=== PATIENT | male | born 1965 | race Caucasian/White ===

== ENCOUNTER 2017-11-29 17:39 | Inpatient (IN) | payer OTHER ==
[~2017-11-29] VITALS: Ht 177.8 cm; Wt 115.3 kg
[2017-11-29] MEDS ORDERED: METOPROLOL TARTRATE 1 MG/ML VIAL IV STA ×3 (18:11→19:06)
[2017-11-29] MEDS ORDERED: SODIUM CHLORIDE 0.9% 1000ML 1,000 ML IV STA (18:11)
[2017-11-29] MEDS ORDERED: BNTHP (18:16)
--- NOTE | 2017-11-29 18:17 | EMERGENCY ROOM VISIT NOTE ---
History Report prepared by Radha: Eloisa Marie Under the Supervision of: Dr. Markus Barajas M.D. 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 The patient states that he has had some sinus congestion for the past couple of days. He went to a clinic in [place] today for evaluation of his cold symptoms. At that time the patient was found to have a fast and irregular heart beat. He was advised to come to the ED for further evaluation. The patient denies feeling like his heart is pounding or racing. He denies having any cardiac symptoms at all. He denies fevers, cough, chest pain, shortness of breath, abdominal pain, pain or swelling in his legs, and any recent long travel. Patient denies any recent trauma or injury. He has been taking NyQuil to manage his cold symptoms. He denies taking any Sudafed. The patient denies any drug or alcohol use. He denies any cocaine use. He does note a family history of a-fib. 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 A total of 10 systems reviewed and were otherwise negative. Past Medical & Surgical Medical Problems: (1) Afib (2) Finger avulsion (3) IBS (irritable bowel syndrome) Family History FH: atrial fibrillation Social History Smoking Status: Never Smoker Smokeless Tobacco Use: No Alcohol Use: none Drug Use: none Marital Status: Housing Status: lives with significant other Current/Historical Medications Miscellaneous Medications Dicyclomine HCl (Dicyclomine HCl) Allergies Coded Allergies: Codeine (Unverified Allergy, Intermediate, VOMITING, 11/29/17) Tetanus Toxoid (Unverified Allergy, Intermediate, redness and swelling, ) Physical Exam Vital Signs Date Time Temp Pulse Resp B/P (MAP) Pulse Ox O2 Delivery O2 Flow Rate FiO2 11/29/17 19:30 102 18 96 11/29/17 19:26 119 19 139/102 98 Room Air 11/29/17 19:25 98 Room Air 11/29/17 19:14 135 151/115 11/29/17 19:03 124 151/115 11/29/17 18:55 133 27 179/103 98 Room Air 11/29/17 18:23 97 Room Air 11/29/17 18:22 144 163/105 11/29/17 18:11 131 11/29/17 17:51 36.8 104 20 143/102 97 Room Air Physical Exam GENERAL: Patient is well appearing and in minimal distress. EYES: No scleral icterus, unremarkable pupils. ENT: Mucous membranes moist, no nasal congestion. Retracted right TM. NECK: No masses appreciated, no meningismus, trachea is midline. RESPIRATORY: No dyspnea. Clear to auscultation and equal bilaterally. No wheeze , no rhonchi. CARDIOVASCULAR: Tachycardic rate and irregular rhythm. No murmurs, rubs, gallops appreciated. GASTROINTESTINAL: Abdomen soft, nontender, no peritonitis. Bowel sounds positive. No masses appreciated. BACK: No midline tenderness, no CVA tenderness EXTREMITIES: Normal motion all extremities, no cyanosis, no edema. NEUROLOGIC: Alert and oriented, no acute motor or sensory deficits, no focal weakness, cranial nerves grossly intact. SKIN: No rash, no jaundice, no diaphoresis. Medical Decision & Procedures ER Provider Diagnostic Interpretation: Radiology results and stated below per my review and radiologist interpretation: CHEST ONE VIEW PORTABLE CLINICAL HISTORY: New Onset Afib RVR cardiac arrhythmia COMPARISON STUDY: No previous studies for comparison. FINDINGS: Moderate cardiomegaly. Lungs are clear. Diaphragms are smooth. IMPRESSION: Moderate cardiomegaly. Otherwise negative study. The above report was generated using voice recognition software. It may contain grammatical, syntax or spelling errors. Electronically signed by: Sharif Smith M.D. 11/29/2017 6:38 PM Dictated Date/Time: 11/29/2017 6:38 PM Laboratory Results 11/29/17 16:01 Red Blood Count 5.21, Mean Corpuscular Volume 83.9, Mean Corpuscular Hemoglobin 29.4, Mean Corpuscular Hemoglobin Concent 35.0, Mean Platelet Volume 9.4, Neutrophils (%) (Auto) 67.8, Lymphocytes (%) (Auto) 20.4, Monocytes (%) (Auto) 9.1, Eosinophils (%) (Auto) 2.0, Basophils (%) (Auto) 0.4, Neutrophils # (Auto) 7.98, Lymphocytes # (Auto) 2.40, Monocytes # (Auto) 1.07, Eosinophils # (Auto) 0.23, Basophils # (Auto) 0.05 11/29/17 16:01 Test 11/29/17 16:01 11/29/17 16:10 White Blood Count 11.77 K/uL (4.8-10.8) Red Blood Count 5.21 M/uL (4.7-6.1) Hemoglobin 15.3 g/dL (14.0-18.0) Hematocrit 43.7 % (42-52) Mean Corpuscular Volume 83.9 fL (80-100) Mean Corpuscular Hemoglobin 29.4 pg (25-34) Mean Corpuscular Hemoglobin Concent 35.0 g/dl (32-36) Platelet Count 289 K/uL (130-400) Mean Platelet Volume 9.4 fL (7.4-10.4) Neutrophils (%) (Auto) 67.8 % Lymphocytes (%) (Auto) 20.4 % Monocytes (%) (Auto) 9.1 % Eosinophils (%) (Auto) 2.0 % Basophils (%) (Auto) 0.4 % Neutrophils # (Auto) 7.98 K/uL (1.4-6.5) Lymphocytes # (Auto) 2.40 K/uL (1.2-3.4) Monocytes # (Auto) 1.07 K/uL (0.11-0.59) Eosinophils # (Auto) 0.23 K/uL (0-0.5) Basophils # (Auto) 0.05 K/uL (0-0.2) RDW Standard Deviation 40.7 fL (36.4-46.3) RDW Coefficient of Variation 13.5 % (11.5-14.5) Immature Granulocyte % (Auto) 0.3 % Immature Granulocyte # (Auto) 0.04 K/uL (0.00-0.02) Anion Gap 5.0 mmol/L (3-11) Est Creatinine Clear Calc Drug Dose 101.5 ml/min Estimated GFR () 90.0 Estimated GFR (Non- 77.6 BUN/Creatinine Ratio 17.4 (10-20) Calcium Level 8.9 mg/dl (8.5-10.1) Magnesium Level 2.3 mg/dl (1.8-2.4) Troponin I < 0.015 ng/ml (0-0.045) Pro-B-Type Natriuretic Peptide 952 pg/ml (0-900) Thyroid Stimulating Hormone (TSH) 2.410 uIu/ml (0.300-4.500) Prothrombin Time 11.2 SECONDS (9.0-12.0) Prothromb Time International Ratio 1.1 (0.9-1.1) Activated Partial Thromboplast Time 27.6 SECONDS (21.0-31.0) Partial Thromboplastin Ratio 1.1 Laboratory results as reviewed by me. Medications Administered Medications (Trade) Dose Ordered Sig/Vivian Route Start Time Stop Time Status Last Admin Dose Admin Metoprolol Tartrate (Lopressor Iv) 5 mg NOW STAT IV 11/29/17 18:11 11/29/17 18:12 DC 11/29/17 18:22 5 MG Sodium Chloride 1,000 ml @ 999 mls/hr Q1H1M STAT IV 11/29/17 18:11 11/29/17 19:11 DC 11/29/17 18:11 999 MLS/HR Metoprolol Tartrate (Lopressor Iv) 5 mg NOW STAT IV 11/29/17 18:50 11/29/17 18:51 DC 11/29/17 19:03 5 MG Metoprolol Tartrate (Lopressor Iv) 5 mg NOW STAT IV 11/29/17 19:06 11/29/17 19:07 DC 11/29/17 19:14 5 MG ECG Per My Interpretation Indication: tachycardia Rate (beats per minute): 149 Rhythm: atrial fibrillation (with RVR) Findings: no acute ischemic change, other (QTC 396) Comparison ECG Date: 08/27/2002 Change: Pt is now in atrial fibrillation. ED Course 175: The patient was evaluated in room C2B. A complete history and physical exam was performed. 1810: NSS 1000 ml @ 999 mls/hr IV, Lopressor 5 mg IV 1850: Lopressor 5 mg IV 1900: I spoke with Gi Bergeron PA-C. We discussed the patient's case. The patient will be evaluated by the [facility] for further management. 1901: I reassessed the patient at this time. He is feeling better and resting comfortably. I discussed the results and treatment plan with the patient. I answered all pertaining questions that he had. He expressed understanding and verbalized agreement. 1905: Lopressor 5 mg IV 1935: The patient had a brief episode of left-sided chest pain that quickly resolved on its own. ECG does not show any ischemia. Hospitalist at bedside. Medical Decision Differential: NSR, SVT, PACs, PVCs, Cardiac Dysrhythmia, Endocrine Dysfunction, Electrolyte/Metabolic Abnormality, Pulmonary Embolism, Infectious, GI, amonst other pathologies entertained. 52 yr old male sent from clinic for evaluation of palpitations. Notes went initially for sinus congestion. On arrival he is in afib RVR. Multiple rounds IV Lopressor to slow HR as well as IV fluid bolus. No evidence infection, anemia, nor PE. No cardiac ischemia at this time. Unclear time of onset. CXR does show some cardiomegaly without congestive failure. Breathing comfortably. Single episode left chest pain which was only a few moments. Repeat EKG still afib RVR without ischemia. With persistent RVR will need to come in. Hospitalist will manage anticoagulation. Patient comfortable with plan. Medication Reconcilliation Current Medication List: was personally reviewed by me Blood Pressure Screening Patient's blood pressure: Elevated blood pressure Will be monitored by hospitalist. Consults Time Called: 1850 Consulting Physician: Gi Bergeron PA-C Returned Call: 1899 I spoke with Gi Bergeron PA-C. We discussed the patient's case. The patient will be evaluated by the [facility] for further management. Impression Primary Impression: Atrial fibrillation with RVR Critical Care I have personally spent greater than 30 minutes of critical care time in the direct management of this patient. This was a life/limb threatening event. This includes time spent evaluating patient, direct bedside care, chart review, placing orders, interpretation of diagnostic studies, discussion with consultants, patient, and family members, as well as other required patient management activities. This 30 minutes is in excess of all separately billable procedures. Scribe Attestation The scribe's documentation has been prepared under my direction and personally reviewed by me in its entirety. I confirm that the note above accurately reflects all work, treatment, procedures, and medical decision making performed by me. Departure Information Dispostion Being Evaluated By Hospitalist Referrals Gokul Will D.O. (PCP) Patient Instructions My [facility]
[2017-11-29 18:22] LABS: BASO % 0.4 %; BASO ABS # 0.05 K/uL (0-0.2); EOS ABS # 0.23 K/uL (0-0.5); HEMATOCRIT 43.7 % (42-52); HEMOGLOBIN 15.3 g/dL (14.0-18.0); IG# 0.04 K/uL (0.00-0.02); LYMPH % 20.4 %; MEAN CELL VOLUME 83.9 fL (80-100); MEAN CORPUSCULAR HEMOGLOBIN 29.4 pg (25-34); MEAN PLATELET VOLUME 9.4 fL (7.4-10.4); MONO % 9.1 %; MONO ABS # 1.07 K/uL (0.11-0.59); NEUT % 67.8 %; NEUT ABS # 7.98 K/uL (1.4-6.5); PLATELET COUNT 289 K/uL (130-400); RED CELL DISTRIBUTION WIDTH CV 13.5 % (11.5-14.5); RED CELL DISTRIBUTION WIDTH SD 40.7 fL (36.4-46.3); WHITE BLOOD COUNT 11.77 K/uL (4.8-10.8)
[2017-11-29 18:38] LABS: BLOOD UREA NITROGEN 19 mg/dl (7-18); CALCIUM 8.9 mg/dl (8.5-10.1); CARBON DIOXIDE 29 mmol/L (21-32); CREATININE 1.09 mg/dl (0.60-1.40); GLUCOSE 76 mg/dl (70-99); POTASSIUM 3.6 mmol/L (3.5-5.1); SODIUM 138 mmol/L (136-145)
--- NOTE | 2017-11-29 18:39 | DIAGNOSTIC IMAGING REPORT ---
CHEST ONE VIEW PORTABLE CLINICAL HISTORY: New Onset Afib RVR cardiac arrhythmia COMPARISON STUDY: No previous studies for comparison. FINDINGS: Moderate cardiomegaly. Lungs are clear. Diaphragms are smooth. IMPRESSION: Moderate cardiomegaly. Otherwise negative study. The above report was generated using voice recognition software. It may contain grammatical, syntax or spelling errors. Electronically signed by: Sharif Smith M.D. 11/29/2017 6:38 PM Dictated Date/Time: 11/29/2017 6:38 PM
[2017-11-29 19:17] LABS: INR 1.1 (0.9-1.1); PTT PATIENT 27.6 SECONDS (21.0-31.0)
[2017-11-29] MEDS ORDERED: POTASSIUM CHLORIDE 10 MEQ TABCR PO STA (19:44)
[2017-11-29] MEDS ORDERED: LORAZEPAM 2 MG/ML 1 ML VIAL IV PRN (20:00)
[2017-11-29] MEDS ORDERED: ACETAMINOPHEN 325 MG TAB PO PRN (20:00)
[2017-11-29] MEDS ORDERED: NITROGLYCERIN 0.4 MG SL PER TAB CHARGE SL PRN (20:00)
[2017-11-29] MEDS ORDERED: TRAMADOL HCL 50 MG TAB PO PRN (20:00)
[2017-11-29] MEDS ORDERED: PROCHLORPERAZINE INJ 5 MG in SYRINGE 4 ML IV PRN (20:00)
[2017-11-29] MEDS ORDERED: MoRPHine SULFATE 2 MG/ML CARP IV PRN (20:00)
[2017-11-29] MEDS ORDERED: AMPICILLIN/SULBACTAM SOD INJ 3,000 MG in SODIUM CHLORIDE 0.9% 100ML 100 ML IV STA (20:10)
[2017-11-29] MEDS: HEPARIN 25,000 UNIT/500ML D5W 500 ML IV SCH (20:26)
[2017-11-29 20:58] LABS: ALBUMIN 3.6 gm/dl (3.4-5.0); TOTAL PROTEIN 7.3 gm/dl (6.4-8.2)
[2017-11-29] MEDS ORDERED: METOPROLOL SUCC 25MG EXT REL TAB PO SCH (21:00)
--- NOTE | 2017-11-29 21:00 | HISTORY & PHYSICAL EXAMINATION ---
DATE OF ADMISSION: 11/29/2017 PRIMARY CARE DOCTOR: Dr. Will. CHIEF COMPLAINT: Irregular heartbeat. HISTORY OF PRESENT ILLNESS: History obtained from patient, records. Medical history significant for IBS, diarrhea predominant. Last few days, patient noted frontal headache, sinus congestion, initially productive of clear drainage later yellow, blood tinged. Sick contacts. No chest pain, no shortness of breath. No palpitations. Patient seen at [place] [facility]. His heartbeat was noted to be fast and irregular. Antibiotic sent to pharmacy by urgent care for sinusitis as per patient. Patient sent to the ER. Noted to be in rapid AFib. Given 3 doses of IV Lopressor in the ER and IV fluids. Heart rate currently 110s. MEDICAL HISTORY: As above. SURGERIES: vasectomy. HOME MEDICATIONS: Include dicyclomine. ALLERGIES: CODEINE, TETANUS TOXOID. FAMILY HISTORY: Heart disease. PERSONAL AND SOCIAL HISTORY: Nonsmoker, no chronic intake of alcoholic beverages. 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 REVIEW OF SYSTEMS: As per HPI. All 10 systems reviewed. All other ROS negative. PHYSICAL EXAMINATION: VITAL SIGNS: Blood pressure noted to be 179/103, pulse rate 103, RR 20, temperature 36.8, sats 98 on room air. GENERAL: Noted to be slightly anxious, obese. No respiratory distress. SKIN: Normal color, warm. HEENT: Stoy palpebral conjunctiva. No ptosis. Dry mucosa. NECK: Short, supple. CHEST: Decreased breath sounds. No tenderness. HEART: Irregular, tachycardic. No murmur. ABDOMEN: Some distention, nontender. EXTREMITIES: No edema. No gross deformity. No tenderness. NEUROLOGIC: Coherent. No gross focality. LABORATORY DATA: Hemoglobin was noted to be 15.3, hematocrit 43.7, white blood cell count 11.77, platelets 289. Sodium 130, potassium 3.6, chloride 104, CO2 29, BUN 19, creatinine 1, glucose was noted to be 76. TSH was noted to be 2.4. Chest x-ray showed cardiomegaly. EKG as per my interpretation. Rate 150, AFib, some T-wave flattening in the inferior leads. ASSESSMENT AND PLAN: 1. New onset atrial fibrillation Possible precipitants : Elevated BP, possible chronic hypertension with cardiomegaly on CXR complicated sinusitis symptoms Decongestant use 2. Irritable bowel syndrome, diarrhea predominant usual loose stools as per patient PCU initiate beta leda maintenance Rx for rate control IV heparin for thromboprophylaxis Augmentin for complicated sinusitis 2D echo, Cardi consult in a.m. RE new onset AFib. DVT prophylaxis, Heparin. Full code. MTDD
[2017-11-29] MEDS ORDERED: METOPROLOL SUCC 25MG EXT REL TAB PO STA (21:01)
[2017-11-29 21:08] VITALS: BP 134/100; PULSE 120; TEMP 37.3; O2SAT 94
[2017-11-29 21:30] VITALS: BP 134/100; PULSE 77; TEMP 37.3; O2SAT 94; Ht 177.8 cm; Wt 115.3 kg
[2017-11-29] MEDS ORDERED: NSS + 20MEQ KCL 1000ML 1,000 ML IV ONE (21:30)
[2017-11-29 23:48] VITALS: BP 122/87; PULSE 58; TEMP 37; O2SAT 95
[2017-11-30] VITALS (7 sets, daily range): BP systolic 122–124; BP diastolic 67–90; PULSE 88–120; TEMP 36.7–37.1; O2SAT 93–98
[2017-11-30] MEDS: NSS + 20MEQ KCL 1000ML 1,000 ML IV SCH ×2 (01:39→22:27)
[2017-11-30 02:32] LABS: PTT PATIENT 43.9 SECONDS (21.0-31.0)
[2017-11-30] MEDS ORDERED: HEPARIN IV BOLUS 4,000 UNIT in SYRINGE 0 ML IV ONE (03:30)
[2017-11-30] MEDS: HEPARIN 25,000 UNIT/500ML D5W 500 ML IV SCH ×2 (03:42→11:25)
[2017-11-30] MEDS ORDERED: METOPROLOL SUCC 25MG EXT REL TAB PO ONE (05:04)
[2017-11-30 05:48] LABS: BASO % 0.3 %; BASO ABS # 0.03 K/uL (0-0.2); EOS % 1.3 %; EOS ABS # 0.13 K/uL (0-0.5); HEMATOCRIT 38.5 % (42-52); HEMOGLOBIN 13.6 g/dL (14.0-18.0); IG# 0.02 K/uL (0.00-0.02); LYMPH % 23.9 %; MEAN CELL VOLUME 84.2 fL (80-100); MEAN CORPUSCULAR HEMOGLOBIN 29.8 pg (25-34); MEAN CORPUSCULAR HGB CONC 35.3 g/dl (32-36); MEAN PLATELET VOLUME 9.4 fL (7.4-10.4); MONO % 8.7 %; MONO ABS # 0.84 K/uL (0.11-0.59); NEUT % 65.6 %; NEUT ABS # 6.31 K/uL (1.4-6.5); PLATELET COUNT 239 K/uL (130-400); RED CELL DISTRIBUTION WIDTH CV 13.8 % (11.5-14.5); RED CELL DISTRIBUTION WIDTH SD 42.5 fL (36.4-46.3); WHITE BLOOD COUNT 9.63 K/uL (4.8-10.8)
[2017-11-30 06:26] LABS: CALCIUM 8.3 mg/dl (8.5-10.1); CREATININE 0.84 mg/dl (0.60-1.40); POTASSIUM 3.8 mmol/L (3.5-5.1)
[2017-11-30] MEDS: AMOXICILLIN/CLAVULANATE TAB 875 MG TAB PO SCH ×2 (07:58→17:05)
[2017-11-30] MEDS ORDERED: PERFLUTREN LIPID MICROSPHERE (DEFINITY) IV ONE (09:53)
--- NOTE | 2017-11-30 10:52 | ECHOCARDIOGRAM REPORT ---
*NOTICE TO RECEIVING [employer] This information is strictly Confidential and protected under [place] law. [place] law prohibits you from making any further disclosure of this information unless further disclosure is expressly permitted by the written consent of the person to whom it pertains or is authorized by law. A general authorization for the release of medical or other information is not sufficient for this purpose. Hospital accepts no responsibility if the information is made available to any other person, INCLUDING THE PATIENT. Interpretation Summary * Name: EVONNE VIDAL Study Date: 11/30/2017 08:10 AM BP: 123/88 mmHg * Patient Location: [facility]\S\N276\S\2 HR: 96 * : 1965 (M/d/yyyy) Gender: Male Height: 70 in * Age: 52 yrs Ethnicity: CA Weight: 257 lb * Ordering Physician: Kenji Pierce * Performed By: Melissa Webber RDCS * * Reason For Study: Atrial Fibrillation * BSA: 2.3 m2 * -- Conclusions -- * The left ventricle is normal in size. * There is normal left ventricular wall thickness. * Left ventricular systolic function is normal. * The left ventricular wall motion is normal. * Ejection Fraction = 55-60%. * The left atrium is moderately dilated. * There is moderate mitral regurgitation. * There is mild tricuspid regurgitation. Procedure Details * A complete two-dimensional transthoracic echocardiogram was performed (2D, M-mode, Doppler and color flow Doppler). * The study was technically difficult. * The study was technically difficult, but visualization was adequate with the administration of Definity ultrasound contrast. * A contrast injection of Definity was performed to improve assessment of LV function. * Contrast was injected into an intravenous site in the right arm. * One vial of Definity ultrasound contrast was diluted in normal saline to a total volume of 10 ml. A total of '1' ml of solution was administered during imaging. * Lot # [id number] of Definity utilized for procedure. * Expiration date 1APR19. * The attending nurse who injected the contrast agent was Thais Gardner RN. Left Ventricle * The left ventricle is normal in size. * There is normal left ventricular wall thickness. * Ejection Fraction = 55-60%. * Left ventricular systolic function is normal. * The left ventricular wall motion is normal. Right Ventricle * The right ventricle is normal in size and function. Atria * The left atrium is moderately dilated. * Right atrial size is normal. * No ASD detected; PFO is not assessed. Mitral Valve * The mitral valve is grossly normal. * There is no mitral valve stenosis. * There is moderate mitral regurgitation. Tricuspid Valve * The tricuspid valve anatomy is normal. * There is no tricuspid stenosis. * There is mild tricuspid regurgitation. Aortic Valve * The aortic valve is trileaflet. * No hemodynamically significant valvular aortic stenosis. * No aortic regurgitation is present. Pulmonic Valve * The pulmonic valve is not well visualized. Great Vessels * The aortic root is normal size. Pericardium/Pleural * There is no pericardial effusion. Great Vessels * Normal inferior vena cava diameter and respiratory variation suggests normal central venous pressure. MMode 2D Measurements and Calculations IVSd 1.3 cm IVSs 1.2 cm LVIDd 4.8 cm LVIDs 3.2 cm LVPWd 1.1 cm LVPWs 1.0 cm IVS/LVPW 1.2 FS 34.3 % EDV(Teich) 110.1 ml ESV(Teich) 40.4 ml EF(Teich) 63.3 % EDV(cubed) 114.0 ml ESV(cubed) 32.3 ml EF(cubed) 71.7 % % IVS thick -11.30 % % LVPW thick -10.05 % LV mass(C)d 225.9 grams LV mass(C)dI 97.3 grams/m\S\2 LV mass(C)s 101.0 grams LV mass(C)sI 43.5 grams/m\S\2 SV(Teich) 69.6 ml SI(Teich) 30.0 ml/m\S\2 SV(cubed) 81.7 ml SI(cubed) 35.2 ml/m\S\2 Ao root diam 3.0 cm Ao root area 6.9 cm\S\2 ACS 1.8 cm LA dimension 5.2 cm LA/Ao 1.8 LVAd ap4 37.0 cm\S\2 LVLd ap4 9.2 cm EDV(MOD-sp4) 121.4 ml EDV(sp4-el) 126.0 ml LVAs ap4 20.6 cm\S\2 LVLs ap4 8.2 cm ESV(MOD-sp4) 43.8 ml ESV(sp4-el) 43.8 ml EF(MOD-sp4) 64.0 % EF(sp4-el) 65.2 % LVAd ap2 37.0 cm\S\2 LVLd ap2 9.2 cm EDV(MOD-sp2) 123.2 ml EDV(sp2-el) 126.0 ml LVAs ap2 24.0 cm\S\2 LVLs ap2 8.9 cm ESV(MOD-sp2) 54.3 ml ESV(sp2-el) 54.7 ml EF(MOD-sp2) 55.9 % EF(sp2-el) 56.6 % LVLd %diff -0.13 % EDV(MOD-bp) 122.0 ml LVLs %diff 8.2 % ESV(MOD-bp) 50.5 ml EF(MOD-bp) 58.6 % SV(MOD-sp4) 77.6 ml SI(MOD-sp4) 33.4 ml/m\S\2 SV(MOD-sp2) 68.9 ml SI(MOD-sp2) 29.7 ml/m\S\2 SV(MOD-bp) 71.5 ml SI(MOD-bp) 30.8 ml/m\S\2 SV(sp4-el) 82.2 ml SI(sp4-el) 35.4 ml/m\S\2 SV(sp2-el) 71.3 ml SI(sp2-el) 30.7 ml/m\S\2 Doppler Measurements and Calculations MV E max sunshine 133.8 cm/sec MV dec time 0.22 sec Ao V2 max 118.1 cm/sec Ao max PG 5.6 mmHg Ao max PG (full) 2.7 mmHg LV V1 max PG 2.9 mmHg LV V1 max 85.2 cm/sec MR max sunshine 469.5 cm/sec MR max PG 88.4 mmHg MR mean sunshine 352.8 cm/sec MR mean PG 56.4 mmHg MR VTI 137.7 cm MR PISA 2.5 cm\S\2 MR PISA radius 0.63 cm PA V2 max 93.2 cm/sec PA max PG 3.5 mmHg TR max sunshine 269.8 cm/sec
--- NOTE | 2017-11-30 11:19 | Cardiology Consultation ---
Cardiology Consultation Date of Consultation: Nov 30, 2017 Requesting Physician: Dr. Pierce Attending Campus Recruiting Intern: Dr. Skinner (Laurel James PA-C) History of Present Illness Patient is a 52 year old male who is overall fairly healthy gentleman, who only takes Nexium as an outpatient for GERD and no prior significant past medical history presented to urgent care facility yesterday for treatment of acute sinusitis. Upon evaluation, he was found to be tachycardic and EKG demonstrated new onset atrial fibrillation with RVR. He was subsequently sent to [place] ER for evaluation. Upon arrival, repeat EKG demonstrated similar with afib RVR. He was started on IV heparin and IV Lopressor. He was asymptomatic. No complaints of palpitations, dizziness, SOB or CP. He notes sinus congestion/pressure x 8-9 days. he has been taking OTC decongestants regularly. No fever or chills. notes intermittent cough, without sputum production. Cardiac enzymes unremarkable. He was transitioned to oral metoprolol succinate 25 mg BID. At time of consult, patient sitting in bed feeling well. HR remains elevated, ranging 110-130. He reports ongoing sinus congestion. no improvement since admission with antibiotic therapy. No orthopnea, PND or edema. No chest pain. No SOB. Ongoing cough, unchanged. No fever or chills. He denies personal history fo cardiovascular disease, [place], CHF, valvular heart disease or murmur. He reports being told he had an "enlarged heart" about 10 years ago by an xray. He reports "MRI" was completed which was normal. No prior stress test. No personal history of CVA, DM. BP borderline on admission. Not on antihypertensive at home. No history of GI bleed or need of transfusion. No history of alcohol or tobacco abuse. He reports father with CAD, prior stents age 60's and history fo afib. (Laurel James PA-C) Past Medical/Surgical History Problem List: Medical Problems: (1) GERD 2. IBS Surgical History: None (Laurel James PA-C) Family History FH: atrial fibrillation Father with CAD (age 60's) and afib (Laurel James PA-C) FH: atrial fibrillation (Gautam Skinner M.D.) Social History Smoking Status: Never Smoker Smokeless Tobacco Use: No Drug Use: none Marital Status: (Laurel James PA-C) Review Of Systems General: The patient denies weight change, night sweats, fever, chills. Head: The patient denies headache and prior head trauma. Cardiovascular: The patient denies chest pain or chest discomfort, dyspnea on exertion, palpitations, PND, orthopnea, edema, spontaneous shortness of breath, syncope and near syncope. Pulmonary: The patient denies cough, wheeze, pleurisy, hemoptysis, sputum, and excessive snoring. Gastrointestinal: The patient denies nausea, vomiting, diarrhea, constipation, bloating, hematemesis, hematochezia, and abdominal pain. Skin: The patient denies diaphoresis and rash. Musculoskeletal: The patient denies joint pain, joint swelling, myalgia, back pain, neck pain and prior injuries. Neurological: The patient denies prior stroke and seizures (Laurel James PA-C) Allergies Coded Allergies: Codeine (Unverified Allergy, Intermediate, VOMITING, 11/29/17) Tetanus Toxoid (Unverified Allergy, Intermediate, redness and swelling, ) Medications Reported Home Medications Medications Dose Route/Sig Max Daily Dose Days Date Category Dicyclomine HCl 1 Ea Cap 11/29/17 Reported (Laurel James PA-C) Physical Exam Vital Signs (Last 8hrs): Last 8 Hrs Date Time Temp Pulse Resp B/P (MAP) Pulse Ox O2 Delivery O2 Flow Rate FiO2 11/30/17 07:19 36.9 97 16 123/87 (99) 93 Room Air 11/30/17 04:01 37.1 96 20 123/88 (100) 95 Room Air 11/30/17 04:00 Room Air General Appearance: Alert and Oriented x3. NAD. Head: Normocephalic Atraumatic. Eyes: PERRLA, EOMI, conjunctiva and sclera clear Neck: Supple. No carotid bruits noted. No JVD. No HJD. Respiratory: Breath sounds clear to auscultation bilaterally. No w/r/r. Cardiovascular: Tachycardic, irregular. S1 and S2 noted. No murmurs, rubs, gallops. PMI non displace. Abdomen: Normal bowel sounds, soft nontender. no abdominal bruits. Extremities: No edema, no clubbing or cyanosis. distal pulses 2/4 bilaterally. Neuro: No focal deficits. Psychiatric: Normal affect. (Laurel James PA-C) Data Last 24 Hours Test 11/29/17 16:01 11/29/17 16:10 11/29/17 20:14 11/30/17 02:15 White Blood Count 11.77 K/uL Red Blood Count 5.21 M/uL Hemoglobin 15.3 g/dL Hematocrit 43.7 % Mean Corpuscular Volume 83.9 fL Mean Corpuscular Hemoglobin 29.4 pg Mean Corpuscular Hemoglobin Concent 35.0 g/dl Platelet Count 289 K/uL Mean Platelet Volume 9.4 fL Neutrophils (%) (Auto) 67.8 % Lymphocytes (%) (Auto) 20.4 % Monocytes (%) (Auto) 9.1 % Eosinophils (%) (Auto) 2.0 % Basophils (%) (Auto) 0.4 % Neutrophils # (Auto) 7.98 K/uL Lymphocytes # (Auto) 2.40 K/uL Monocytes # (Auto) 1.07 K/uL Eosinophils # (Auto) 0.23 K/uL Basophils # (Auto) 0.05 K/uL RDW Standard Deviation 40.7 fL RDW Coefficient of Variation 13.5 % Immature Granulocyte % (Auto) 0.3 % Immature Granulocyte # (Auto) 0.04 K/uL Sodium Level 138 mmol/L Potassium Level 3.6 mmol/L Chloride Level 104 mmol/L Carbon Dioxide Level 29 mmol/L Anion Gap 5.0 mmol/L Blood Urea Nitrogen 19 mg/dl Creatinine 1.09 mg/dl Est Creatinine Clear Calc Drug Dose 101.5 ml/min Estimated GFR () 90.0 Estimated GFR (Non- 77.6 BUN/Creatinine Ratio 17.4 Random Glucose 76 mg/dl Calcium Level 8.9 mg/dl Magnesium Level 2.3 mg/dl Troponin I < 0.015 ng/ml Pro-B-Type Natriuretic Peptide 952 pg/ml Thyroid Stimulating Hormone (TSH) 2.410 uIu/ml Prothrombin Time 11.2 SECONDS Prothromb Time International Ratio 1.1 Activated Partial Thromboplast Time 27.6 SECONDS 43.9 SECONDS Partial Thromboplastin Ratio 1.1 1.7 Total Bilirubin 0.7 mg/dl Direct Bilirubin 0.2 mg/dl Aspartate Amino Transf (AST/SGOT) 16 U/L Alanine Aminotransferase (ALT/SGPT) 15 U/L Alkaline Phosphatase 66 U/L Total Protein 7.3 gm/dl Albumin 3.6 gm/dl Procalcitonin 0.05 ng/ml Test 11/30/17 05:19 11/30/17 09:45 White Blood Count 9.63 K/uL Red Blood Count 4.57 M/uL Hemoglobin 13.6 g/dL Hematocrit 38.5 % Mean Corpuscular Volume 84.2 fL Mean Corpuscular Hemoglobin 29.8 pg Mean Corpuscular Hemoglobin Concent 35.3 g/dl Platelet Count 239 K/uL Mean Platelet Volume 9.4 fL Neutrophils (%) (Auto) 65.6 % Lymphocytes (%) (Auto) 23.9 % Monocytes (%) (Auto) 8.7 % Eosinophils (%) (Auto) 1.3 % Basophils (%) (Auto) 0.3 % Neutrophils # (Auto) 6.31 K/uL Lymphocytes # (Auto) 2.30 K/uL Monocytes # (Auto) 0.84 K/uL Eosinophils # (Auto) 0.13 K/uL Basophils # (Auto) 0.03 K/uL RDW Standard Deviation 42.5 fL RDW Coefficient of Variation 13.8 % Immature Granulocyte % (Auto) 0.2 % Immature Granulocyte # (Auto) 0.02 K/uL Sodium Level 139 mmol/L Potassium Level 3.8 mmol/L Chloride Level 109 mmol/L Carbon Dioxide Level 22 mmol/L Anion Gap 8.0 mmol/L Blood Urea Nitrogen 14 mg/dl Creatinine 0.84 mg/dl Est Creatinine Clear Calc Drug Dose 131.5 ml/min Estimated GFR () 116.7 Estimated GFR (Non- 100.7 BUN/Creatinine Ratio 16.5 Random Glucose 102 mg/dl Calcium Level 8.3 mg/dl Activated Partial Thromboplast Time 62.0 SECONDS Partial Thromboplastin Ratio 2.4 Imaging: Chest xray on admission: Moderate cardiomegaly, no active disease EKG on admission - Afib with RVR at 149 bpm, non specific ST/T wave abnormality. Compared with prior EKG in 2001 - afib has replaced NSR. Repeat EKG yesterday evening: Afib wiht RVR at [address]/T wave abnormality. Unchanged, rates slightly improved Repeat EKG this AM: Atrial fibrillation at 100 bpm Unchanged from previous, other than HR improving. Telemetry reviewed: Afib, with occ PVC. Rates tachycardic, ranging predominantly 110-130s. (Laurel James PA-C) Assessment & Plan ASSESSMENT: 52 year old male 1. Newly diagnosed atrial fibrillation wiht RVR, duration unknown 2. Acute sinusitis, with recent OTC decongestant use 3. Hypertension - borderline PLAN: Echo pending Duration of atrial fibrillation is not certain as patient is asymptomatic. Recommend anticoagulation therapy. Likely DOAC candidate. Recommend rate control with metoprolol succinate. Titrate as tolerated. After 4 weeks of appropriate anticoagulation therapy, if patient remains in atrial fibrillation, consider DCCV. Continue antibiotic for acute sinusitis per hospitalist. Case discussed with Dr. Skinner. Will follow. (Laurel James PA-C) Patient seen and personally examined. 52-year-old presented initially for evaluation of acute sinusitis is found to be in atrial fibrillation with elevated ventricular response rate timing, duration uncertain. Patient unaware of tachycardia palpitations or arrhythmias. Atrial fibrillation was discussed in detail with the patient, plan assessment as noted above We will give additional dose of Toprol now and supplement potassium further Gautam Skinner MD (Gautam Skinner M.D.)
[2017-11-30] MEDS ORDERED: METOPROLOL TARTRATE 25 MG TAB PO ONE (12:45)
[2017-11-30] MEDS ORDERED: METOPROLOL SUCC 50MG EXT REL TAB PO ONE (14:00)
[2017-11-30] MEDS ORDERED: POTASSIUM CHLORIDE 10 MEQ TABCR PO ONE (14:00)
--- NOTE | 2017-11-30 14:19 | Progress Note ---
Subjective Date of Service: Nov 30, 2017. Subjective Pt evaluation today including: conversation w/ patient, physical exam, lab review, review of studies, conversation w/ residential solar consultant, review of inpatient medication list Saw/examined the patient in room 276 He is doing well, denies any chest pain/shortness of breath/palpitations Has sinus congestion, but no other symptoms at this time Problem List Medical Problems: (1) Atrial fibrillation with RVR Status: Acute Review of Systems Constitutional: No fever, No chills ENT: + nasal symptoms Respiratory: No cough, No sputum, No shortness of breath Cardiac: No chest pain, No orthopnea, No PND, No edema, No palpitations Heme: No abnormal bleeding/bruising Medications Current Inpatient Medications Medications (Trade) Dose Ordered Sig/Vivian Route Start Time Stop Time Status Last Admin Dose Admin Acetaminophen (Tylenol Tab) 650 mg Q4H PRN PO 11/29/17 20:00 12/29/17 19:59 Nitroglycerin (Nitrostat Tab) 0.4 mg UD PRN SL 11/29/17 20:00 12/29/17 19:59 Tramadol HCl (Ultram Tab) 25 mg Q6H PRN PO 11/29/17 20:00 12/29/17 19:59 Prochlorperazine Edisylate 5 mg/ Syringe 5 ml @ 5 mls/min Q6H PRN IV 11/29/17 20:00 12/29/17 19:59 Amoxicillin/ Clavulanate Potassium (Augmentin Tab) 875 mg BIDM PO 11/30/17 08:00 12/10/17 07:59 11/30/17 07:58 875 MG Lorazepam (Ativan Inj) 0.5 mg Q4H PRN IV 11/29/17 20:00 12/29/17 19:59 Morphine Sulfate (MoRPHine SULFATE INJ) 4 mg Q3H PRN IV 11/29/17 20:00 12/13/17 19:59 Heparin Sodium/ Dextrose 500 ml @ 37 mls/hr [id number] IV 11/29/17 20:15 12/29/17 20:14 11/30/17 11:25 37 MLS/HR Potassium Chloride/Sodium Chloride 1,000 ml @ 50 mls/hr Q20H IV 11/30/17 01:15 4/27/18 01:14 11/30/17 01:39 50 MLS/HR Metoprolol Succinate (Toprol Xl Tab) 25 mg BID PO 11/30/17 21:00 12/29/17 20:59 Objective Vital Signs Date Time Temp Pulse Resp B/P (MAP) Pulse Ox O2 Delivery O2 Flow Rate FiO2 11/30/17 13:24 120 123/67 (85) 98 Room Air 11/30/17 12:00 93 Room Air 11/30/17 08:00 93 Room Air 11/30/17 07:19 36.9 97 16 123/87 (99) 93 Room Air 11/30/17 04:01 37.1 96 20 123/88 (100) 95 Room Air 11/30/17 04:00 Room Air 11/30/17 00:00 Room Air 11/29/17 23:48 37.0 58 18 122/87 (99) 95 Room Air 11/29/17 21:30 37.3 77 20 134/100 94 Room Air 11/29/17 21:08 37.3 120 20 134/100 (111) 94 Room Air 11/29/17 20:36 119 19 127/88 97 11/29/17 20:02 132 24 126/92 97 11/29/17 20:00 113 19 96 11/29/17 19:30 102 18 96 11/29/17 19:26 119 19 139/102 98 Room Air 11/29/17 19:25 98 Room Air 11/29/17 19:14 135 151/115 11/29/17 19:03 124 151/115 11/29/17 18:55 133 27 179/103 98 Room Air 11/29/17 18:23 97 Room Air 11/29/17 18:22 144 163/105 11/29/17 18:11 131 11/29/17 17:51 36.8 104 20 143/102 97 Room Air Physical Exam General Appearance: no apparent distress Respiratory/Chest: chest non-tender, lungs clear, normal breath sounds, no respiratory distress, no accessory muscle use Cardiovascular: no edema, + tachycardia, + irregularly irregular Extremities: normal range of motion, non-tender, normal inspection, no pedal edema, no calf tenderness Neurologic/Psychiatric: no motor/sensory deficits, alert, normal mood/affect Laboratory Results Last 24 Hours Test 11/29/17 16:01 11/29/17 16:10 11/29/17 20:14 11/30/17 02:15 White Blood Count 11.77 K/uL Red Blood Count 5.21 M/uL Hemoglobin 15.3 g/dL Hematocrit 43.7 % Mean Corpuscular Volume 83.9 fL Mean Corpuscular Hemoglobin 29.4 pg Mean Corpuscular Hemoglobin Concent 35.0 g/dl Platelet Count 289 K/uL Mean Platelet Volume 9.4 fL Neutrophils (%) (Auto) 67.8 % Lymphocytes (%) (Auto) 20.4 % Monocytes (%) (Auto) 9.1 % Eosinophils (%) (Auto) 2.0 % Basophils (%) (Auto) 0.4 % Neutrophils # (Auto) 7.98 K/uL Lymphocytes # (Auto) 2.40 K/uL Monocytes # (Auto) 1.07 K/uL Eosinophils # (Auto) 0.23 K/uL Basophils # (Auto) 0.05 K/uL RDW Standard Deviation 40.7 fL RDW Coefficient of Variation 13.5 % Immature Granulocyte % (Auto) 0.3 % Immature Granulocyte # (Auto) 0.04 K/uL Sodium Level 138 mmol/L Potassium Level 3.6 mmol/L Chloride Level 104 mmol/L Carbon Dioxide Level 29 mmol/L Anion Gap 5.0 mmol/L Blood Urea Nitrogen 19 mg/dl Creatinine 1.09 mg/dl Est Creatinine Clear Calc Drug Dose 101.5 ml/min Estimated GFR () 90.0 Estimated GFR (Non- 77.6 BUN/Creatinine Ratio 17.4 Random Glucose 76 mg/dl Calcium Level 8.9 mg/dl Magnesium Level 2.3 mg/dl Troponin I < 0.015 ng/ml Pro-B-Type Natriuretic Peptide 952 pg/ml Thyroid Stimulating Hormone (TSH) 2.410 uIu/ml Prothrombin Time 11.2 SECONDS Prothromb Time International Ratio 1.1 Activated Partial Thromboplast Time 27.6 SECONDS 43.9 SECONDS Partial Thromboplastin Ratio 1.1 1.7 Total Bilirubin 0.7 mg/dl Direct Bilirubin 0.2 mg/dl Aspartate Amino Transf (AST/SGOT) 16 U/L Alanine Aminotransferase (ALT/SGPT) 15 U/L Alkaline Phosphatase 66 U/L Total Protein 7.3 gm/dl Albumin 3.6 gm/dl Procalcitonin 0.05 ng/ml Test 11/30/17 05:19 11/30/17 09:45 White Blood Count 9.63 K/uL Red Blood Count 4.57 M/uL Hemoglobin 13.6 g/dL Hematocrit 38.5 % Mean Corpuscular Volume 84.2 fL Mean Corpuscular Hemoglobin 29.8 pg Mean Corpuscular Hemoglobin Concent 35.3 g/dl Platelet Count 239 K/uL Mean Platelet Volume 9.4 fL Neutrophils (%) (Auto) 65.6 % Lymphocytes (%) (Auto) 23.9 % Monocytes (%) (Auto) 8.7 % Eosinophils (%) (Auto) 1.3 % Basophils (%) (Auto) 0.3 % Neutrophils # (Auto) 6.31 K/uL Lymphocytes # (Auto) 2.30 K/uL Monocytes # (Auto) 0.84 K/uL Eosinophils # (Auto) 0.13 K/uL Basophils # (Auto) 0.03 K/uL RDW Standard Deviation 42.5 fL RDW Coefficient of Variation 13.8 % Immature Granulocyte % (Auto) 0.2 % Immature Granulocyte # (Auto) 0.02 K/uL Sodium Level 139 mmol/L Potassium Level 3.8 mmol/L Chloride Level 109 mmol/L Carbon Dioxide Level 22 mmol/L Anion Gap 8.0 mmol/L Blood Urea Nitrogen 14 mg/dl Creatinine 0.84 mg/dl Est Creatinine Clear Calc Drug Dose 131.5 ml/min Estimated GFR () 116.7 Estimated GFR (Non- 100.7 BUN/Creatinine Ratio 16.5 Random Glucose 102 mg/dl Calcium Level 8.3 mg/dl Activated Partial Thromboplast Time 62.0 SECONDS Partial Thromboplastin Ratio 2.4 Assessment and Plan This is a 52 year old male with recent sinus congestion and no other medical history - presents with atrial fibrillation with rvr A. Fib with RVR - currently on IV heparin for anticoagulation - would be a good candidate for a direct oral anticoagulation; Xarelto - will consult CM to discuss cost - appreciate cardiology input; rate control with b-blockade; adjusting dose of Toprol Acute Sinusitis - had been using decongestants, OTC medications - will try Augmentin, will likely need 10 day supply FULL CODE
[2017-11-30] MEDS ORDERED: METOPROLOL SUCC 25MG EXT REL TAB PO SCH (21:00)
[2017-11-30] MEDS: METOPROLOL SUCC 25MG EXT REL TAB PO SCH (22:27)
[2017-12-01] MEDS: HEPARIN 25,000 UNIT/500ML D5W 500 ML IV SCH (00:48)
[2017-12-01 04:09] VITALS: BP 121/81; PULSE 100; TEMP 36.9; O2SAT 94
[2017-12-01 07:22] VITALS: BP 129/88; PULSE 85; TEMP 36.6; O2SAT 95
[2017-12-01 07:22] LABS: PTT PATIENT 54.1 SECONDS (21.0-31.0)
[2017-12-01] MEDS: METOPROLOL SUCC 25MG EXT REL TAB PO SCH (07:29)
[2017-12-01] MEDS: AMOXICILLIN/CLAVULANATE TAB 875 MG TAB PO SCH (07:29)
[2017-12-01 08:00] VITALS: O2SAT 95
[2017-12-01] MEDS ORDERED: APIXABAN 2.5 MG TAB PO ONE (09:29)
[2017-12-01] MEDS ORDERED: METOPROLOL SUCC 25MG EXT REL TAB PO STA (10:21)
[2017-12-01] MEDS ORDERED: POTASSIUM CHLORIDE 10 MEQ TABCR PO STA (10:24)
--- NOTE | 2017-12-01 11:29 | Cardiology Follow-Up ---
Subjective General Date of Service: Dec 01, 2017. Chief Complaint: afib RVR Pt evaluation today including: conversation w/ patient, conversation w/ family , physical exam, chart review, lab review, review of studies, review of inpatient medication list History of Present Illness Patient feeling well. Sinus pressure and congestion improving. Unaware of palpitations or tachypalpitations. No dizziness. No chest pain or SOB. Allergies Coded Allergies: Codeine (Unverified Allergy, Intermediate, VOMITING, 11/29/17) Tetanus Toxoid (Unverified Allergy, Intermediate, redness and swelling, ) Social History Smoking Status: Never Smoker Hx Tobacco Use In Past Year?: No Hx Alcohol Use - Type And Amou: No Hx Substance Use - Type And Am: No Problem List Medical Problems: (1) Atrial fibrillation with RVR Status: Acute Review of Systems Respiratory: No cough, No wheezing, No shortness of breath, No dyspnea at rest , No hemoptysis Cardiac: No chest pain, No orthopnea, No PND, No edema, No palpitations Physical Exam Vital Signs Last Vital Signs Documentation Date Time Temp Pulse Resp B/P (MAP) Pulse Ox O2 Delivery O2 Flow Rate FiO2 12/01/17 08:00 95 Room Air 12/01/17 07:22 36.6 85 16 129/88 (102) Physical Exam Constitutional: General Apperance: heathly-appearing Level of Distress: NAD Psychiatric: Mental Status: active & alert Orientation: to time, to place, to person Head: normocephalic Neck: supple Lungs: Respiratory effort: no dyspnea Auscultation: no wheezing, no rales/crackles, no rhonchi Cardiovascular: Heart Auscultation: no murmurs, irregular rate rhythm Abdomen: Bowel Sounds: normal Inspection & Palpation: soft, non-distended Extremities: no edema Assessment and Plan Assessment and Plan ASSESSMENT: 52 year old male 1. Newly diagnosed atrial fibrillation wiht RVR, duration unknown 2. Acute sinusitis, with recent OTC decongestant use 3. Hypertension - borderline PLAN: Echo report reviewed - Normal LV function, Moderately dilated left atrium, moderate MR. Transition from IV hep to Eliquis 5 mg BID Titrate metoprolol as tolerated/needed fo rate control. HR's currently 90's at rest after AM medications. After 4 weeks of appropriate anticoagulation therapy, if patient remains in atrial fibrillation, consider DCCV. Continue antibiotics for acute sinusitis per hospitalist. Anticipate discharge later today. Receiving IV potassium. Recheck labs this AM. Case discussed with Dr. Skinner Patient was seen and personally examined. Assessment and plan as outlined above. Patient is essentially unaware of his atrial fibrillation rates are improving on current medication. Will reassess in 3 weeks time on anticoagulation for consideration of synchronize cardioversion Gautam Skinner MD Laboratory Results Last 24 Hours Test 12/01/17 06:46 Activated Partial Thromboplast Time 54.1 SECONDS Partial Thromboplastin Ratio 2.1
[2017-12-01 11:39] VITALS: BP 123/84; PULSE 78; TEMP 36.6; O2SAT 95
[2017-12-01 12:00] VITALS: O2SAT 95
[2017-12-01 12:05] LABS: CALCIUM 8.8 mg/dl (8.5-10.1); CREATININE 1.01 mg/dl (0.60-1.40); POTASSIUM 3.9 mmol/L (3.5-5.1)
[2017-12-01 13:59] VITALS: BP 123/84; PULSE 78; TEMP 36.6; O2SAT 95
--- NOTE | 2017-12-01 14:07 | Progress Note ---
Subjective Date of Service: Dec 01, 2017. Subjective Pt evaluation today including: conversation w/ patient, physical exam, lab review, review of studies, review of inpatient medication list Saw/examined the patient in room 276 No problems/issues to note No palpitations noted by the patient, denies chest pain or shortness of breath Problem List Medical Problems: (1) Atrial fibrillation with RVR Status: Acute Review of Systems ENT: + problem reported (sinus pain improving) Respiratory: No cough, No sputum, No shortness of breath Cardiac: No chest pain, No edema, No palpitations Medications Current Inpatient Medications Medications (Trade) Dose Ordered Sig/Vivian Route Start Time Stop Time Status Last Admin Dose Admin Acetaminophen (Tylenol Tab) 650 mg Q4H PRN PO 11/29/17 20:00 12/29/17 19:59 Nitroglycerin (Nitrostat Tab) 0.4 mg UD PRN SL 11/29/17 20:00 12/29/17 19:59 Tramadol HCl (Ultram Tab) 25 mg Q6H PRN PO 11/29/17 20:00 12/29/17 19:59 Prochlorperazine Edisylate 5 mg/ Syringe 5 ml @ 5 mls/min Q6H PRN IV 11/29/17 20:00 12/29/17 19:59 Amoxicillin/ Clavulanate Potassium (Augmentin Tab) 875 mg BIDM PO 11/30/17 08:00 12/10/17 07:59 12/01/17 07:29 875 MG Lorazepam (Ativan Inj) 0.5 mg Q4H PRN IV 11/29/17 20:00 12/29/17 19:59 Morphine Sulfate (MoRPHine SULFATE INJ) 4 mg Q3H PRN IV 11/29/17 20:00 12/13/17 19:59 Potassium Chloride/Sodium Chloride 1,000 ml @ 50 mls/hr Q20H IV 11/30/17 01:15 12/30/17 01:14 11/30/17 22:27 50 MLS/HR Apixaban (Eliquis Tab) 5 mg BID PO 12/01/17 21:00 12/31/17 20:59 Metoprolol Succinate (Toprol Xl Tab) 25 mg PM PO 12/01/17 21:00 12/29/17 20:59 Metoprolol Succinate (Toprol Xl Tab) 37.5 mg QAM PO 12/02/17 09:00 01/01/18 08:59 Objective Vital Signs Date Time Temp Pulse Resp B/P (MAP) Pulse Ox O2 Delivery O2 Flow Rate FiO2 12/01/17 13:59 36.6 78 18 95 Room Air 12/01/17 12:00 95 Room Air 12/01/17 11:39 36.6 78 18 123/84 (97) 95 12/01/17 08:00 95 Room Air 12/01/17 07:22 36.6 85 16 129/88 (102) 95 12/01/17 04:09 36.9 100 18 121/81 (94) 94 Room Air 12/01/17 04:00 Room Air 11/30/17 23:40 Room Air 11/30/17 23:20 36.7 109 18 122/90 (101) 96 Room Air 11/30/17 20:00 Room Air 11/30/17 16:00 Room Air 11/30/17 15:16 37.1 88 16 124/83 (97) 96 Physical Exam General Appearance: no apparent distress Respiratory/Chest: lungs clear, normal breath sounds, no respiratory distress, no accessory muscle use Cardiovascular: no murmur, + tachycardia, + irregularly irregular Laboratory Results Last 24 Hours Test 12/01/17 06:46 12/01/17 11:36 Activated Partial Thromboplast Time 54.1 SECONDS Partial Thromboplastin Ratio 2.1 Sodium Level 138 mmol/L Potassium Level 3.9 mmol/L Chloride Level 105 mmol/L Carbon Dioxide Level 28 mmol/L Anion Gap 5.0 mmol/L Blood Urea Nitrogen 16 mg/dl Creatinine 1.01 mg/dl Est Creatinine Clear Calc Drug Dose 108.8 ml/min Estimated GFR () 98.7 Estimated GFR (Non- 85.1 BUN/Creatinine Ratio 15.4 Random Glucose 66 mg/dl Calcium Level 8.8 mg/dl Assessment and Plan This is a 52 year old male with recent sinus congestion and no other medical history - presents with atrial fibrillation with rvr A. Fib with RVR 12/01 - appreciate cardiology input - will d/c on Eliquis dose as well as Toprol XL - outpatient cardiology follow-up in 3 weeks for possible cardioversion 11/30 - currently on IV heparin for anticoagulation - would be a good candidate for a direct oral anticoagulation; Xarelto - will consult CM to discuss cost - appreciate cardiology input; rate control with b-blockade; adjusting dose of Toprol Acute Sinusitis - had been using decongestants, OTC medications - will try Augmentin, will likely need 10 day course FULL CODE
[2017-12-01] MEDS ORDERED: AMOX1TAB43 PO (14:09)
[2017-12-01] MEDS ORDERED: APIX1TAB3 PO (14:09)
[2017-12-01] MEDS ORDERED: TPRSR25 PO (14:09)
[2017-12-01] MEDS ORDERED: LCTX PO (14:09)
--- NOTE | 2017-12-01 14:12 | Discharge Instructions ---
Discharge Instructions Date of Service Dec 01, 2017. Admission Reason for Admission: AFIB Discharge Discharge Diagnosis / Problem: New Onset Atrial Fibrillation; Acute Sinusitis Discharge Goals Goal(s): Decrease discomfort, Improve function, Diagnostic testing, Therapeutic intervention Activity Recommendations Activity Limitations: resume your previous activity . Instructions / Follow-Up Instructions / Follow-Up Please follow-up with cardiology, Dr. Skinner, in around 3 weeks * You will be on Eliquis (blood thinner) 5mg twice daily * You will be on Toprol XL (heart rate control) 37.5mg twice daily * You will be prescribed Augmentin (antibiotic) twice a day for 8 days for sinusitis * You can take over the counter Floranex if you have any GI side effects (like diarrhea) to the antibiotic Please follow-up with your primary care physician next week Current Hospital Diet Patient's current hospital diet: AHA Diet (Heart Healthy) Discharge Diet Recommended Diet: Regular Diet Pending Studies Studies pending at discharge: no Medical Emergencies . Who to Call and When: Medical Emergencies: If at any time you feel your situation is an emergency, please call 911 immediately. . Non-Emergent Contact Non-Emergency issues call your: Primary Care Provider, Mortar Mixer Operator . . "Provider Documentation" section prepared by Neil Bedolla. .
--- NOTE | 2017-12-01 14:14 | Discharge Summary ---
Discharge Summary Date of Service Dec 01, 2017. Discharge Summary Admission Date: Nov 29, 2017 at 19:32 Discharge Date: Dec 01, 2017 Discharge Disposition: Home Principal Diagnosis: New Onset Atrial Fibrillation Acute Sinusitis Medication Reconciliation New Medications: Lactobacillus Acidophilus (Floranex) 1 Tab Tab 1 TAB PO BIDM for 8 Days, #16 TABS Amoxicillin & Pot Clavulanate (Amoxicillin/Clavulanate P) 1 Tab Tab 875 MG PO BIDM for 8 Days, #16 TAB Apixaban (Eliquis) 5 Mg Tab 5 MG PO BID for 30 Days, #60 TAB Metoprolol Succinate (Metoprolol Succinate ER) 25 Mg Tabcr 37.5 MG PO BID for 30 Days, #90 TABS Continued Medications: Dicyclomine HCl (Dicyclomine HCl) 1 Ea Cap Admission Information HPI (per Admitting provider): DATE OF ADMISSION: 11/29/2017 PRIMARY CARE DOCTOR: Dr. Will. CHIEF COMPLAINT: Irregular heartbeat. HISTORY OF PRESENT ILLNESS: History obtained from patient, records. Medical history significant for IBS, diarrhea predominant. Last few days, patient noted frontal headache, sinus congestion, initially productive of clear drainage later yellow, blood tinged. Sick contacts. No chest pain, no shortness of breath. No palpitations. Patient seen at [facility]. His heartbeat was noted to be fast and irregular. Antibiotic sent to pharmacy by urgent care for sinusitis as per patient. Patient sent to the ER. Noted to be in rapid AFib. Given 3 doses of IV Lopressor in the ER and IV fluids. Heart rate currently 110s. MEDICAL HISTORY: As above. SURGERIES: vasectomy. HOME MEDICATIONS: Include dicyclomine. ALLERGIES: CODEINE, TETANUS TOXOID. FAMILY HISTORY: Heart disease. PERSONAL AND SOCIAL HISTORY: Nonsmoker, no chronic intake of alcoholic beverages. 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 REVIEW OF SYSTEMS: As per HPI. All 10 systems reviewed. All other ROS negative. PHYSICAL EXAMINATION: VITAL SIGNS: Blood pressure noted to be 179/103, pulse rate 103, RR 20, temperature 36.8, sats 98 on room air. GENERAL: Noted to be slightly anxious, obese. No respiratory distress. SKIN: Normal color, warm. HEENT: [place] palpebral conjunctiva. No ptosis. Dry mucosa. NECK: Short, supple. CHEST: Decreased breath sounds. No tenderness. HEART: Irregular, tachycardic. No murmur. ABDOMEN: Some distention, nontender. EXTREMITIES: No edema. No gross deformity. No tenderness. NEUROLOGIC: Coherent. No gross focality. LABORATORY DATA: Hemoglobin was noted to be 15.3, hematocrit 43.7, white blood cell count 11.77, platelets 289. Sodium 130, potassium 3.6, chloride 104, CO2 29, BUN 19, creatinine 1, glucose was noted to be 76. TSH was noted to be 2.4. Chest x-ray showed cardiomegaly. EKG as per my interpretation. Rate 150, AFib, some T-wave flattening in the inferior leads. ASSESSMENT AND PLAN: 1. New onset atrial fibrillation Possible precipitants : Elevated BP, possible chronic hypertension with cardiomegaly on CXR complicated sinusitis symptoms Decongestant use 2. Irritable bowel syndrome, diarrhea predominant usual loose stools as per patient PCU initiate beta leda maintenance Rx for rate control IV heparin for thromboprophylaxis Augmentin for complicated sinusitis 2D echo, Cardi consult in a.m. RE new onset AFib. DVT prophylaxis, Heparin. Full code. Hospital Course This is a 52 year old male with recent sinus congestion and no other medical history - presents with atrial fibrillation with rvr A. Fib with RVR 12/01 - appreciate cardiology input - will d/c on Eliquis dose as well as Toprol XL - outpatient cardiology follow-up in 3 weeks for possible cardioversion 11/30 - currently on IV heparin for anticoagulation - would be a good candidate for a direct oral anticoagulation; Xarelto - will consult CM to discuss cost - appreciate cardiology input; rate control with b-blockade; adjusting dose of Toprol Acute Sinusitis - had been using decongestants, OTC medications - will try Augmentin, will likely need 10 day course FULL CODE Total time spent on discharge = 35 minutes This includes examination of the patient, discharge planning, medication reconciliation, and communication with other providers. Discharge Instructions Please follow-up with cardiology, Dr. Skinner, in around 3 weeks * You will be on Eliquis (blood thinner) 5mg twice daily * You will be on Toprol XL (heart rate control) 37.5mg twice daily * You will be prescribed Augmentin (antibiotic) twice a day for 8 days for sinusitis * You can take over the counter Floranex if you have any GI side effects (like diarrhea) to the antibiotic Please follow-up with your primary care physician next week
[2017-12-01] MEDS ORDERED: METOPROLOL SUCC 25MG EXT REL TAB PO SCH (21:00)
[2017-12-01] MEDS ORDERED: APIXABAN 2.5 MG TAB PO SCH (21:00)
[2017-12-02] MEDS ORDERED: METOPROLOL SUCC 25MG EXT REL TAB PO SCH (09:00)
== END 2017-12-01 14:35 | disposition home or self-care (01) | DRG 310 ==
LOC: C.EDB 17:40 → C.MED 19:32 → ENRESERV 20:00
PROVIDERS: ADMIT Family Medicine; ATTEND Family Medicine
DX: I48.91 Unspecified atrial fibrillation (principal); K58.9 Irritable bowel syndrome, unspecified; J01.90 Acute sinusitis, unspecified; K21.9 Gastro-esophageal reflux disease without esophagitis; I10 Essential (primary) hypertension; Z88.5 Allergy status to narcotic agent

== ENCOUNTER → 2018-01-06 | Day surgery (SDC) | payer OTHER ==
[~2018-01-06] VITALS: Ht 177.8 cm; Wt 116.0 kg
[2018-01-06] VITALS (9 sets, daily range): BP systolic 108–146; BP diastolic 77–95; PULSE 67–107; TEMP 36.9; O2SAT 96–100; Ht 177.8 cm; Wt 116.0 kg
[~2018-01-06] MED LIST: AMOX1TAB43 PO; APIX1TAB3 PO; BNTHP; FLUT0.15; LCTX PO; PROPOFOL IV EMULSION 10 MG/ML 20 ML VIAL ONE; TPRSR25 PO
--- NOTE | 2018-01-06 07:41 | Cardiology Procedure Brief Nt ---
Preliminary Cardiology Note Procedure Date January 06, 2018. Pre-Procedure Diagnosis Atrial fibrillation Post-Procedure Diagnosis Successful synchronized electrical cardioversion Procedure(s) Performed Successful synchronized electrical cardioversion Drawer In Plain Loom Brody Designer Architect(s) None Estimated Blood Loss None Preliminary Findings Successful synchronized electrical cardioversion was performed using single biphasic 150 J countershock Recommendations Medical therapies Specimens None Complication(s) None Disposition Optometry Professor Holding Area
--- NOTE | 2018-01-06 07:43 | Anesthesiology Progress Note ---
Anesthesia Post Op Note Date & Time January 06, 2018 at 07:42 Vital Signs Vital Signs Past 12 Hours Date Time Temp Pulse Resp B/P (MAP) Pulse Ox O2 Delivery O2 Flow Rate FiO2 01/06/18 06:53 36.9 107 18 127/90 (102) 98 Room Air Notes Mental Status: alert / awake / arousable, participated in evaluation Pt Amnestic to Procedure: Yes Nausea / Vomiting: adequately controlled Pain: adequately controlled Airway Patency, RR, SpO2: stable & adequate BP & HR: stable & adequate Hydration State: stable & adequate Anesthetic Complications: no major complications apparent
--- NOTE | 2018-01-06 08:17 | Discharge Instructions ---
Discharge Instructions Procedure Procedure Date: January 06, 2018. Reason for Visit: Afib W/ Anesthesia *Brody Doing*. Discharge Discharge Date: January 06, 2018. Discharge Diagnosis: Successful synchronized electrical cardioversion Last Recorded Wt (Kilograms): 116 Anesthesia Post Anesthesia Instructions: If you have had General Anesthesia or IV Sedation: * Do not drive today. * Resume driving when surgeon permits. * Do not make important decisions or sign legal documents today. * Call surgeon for: 1. Temperature elevations greater than 101 degrees F. 2. Uncontrollable pain. 3. Excessive bleeding. 4. Persistent nausea and vomiting. 5. Medication intolerance (nausea, vomiting or rash). * For nausea and vomiting use only clear liquids such as: tea, soda, bouillon until nausea subsides, then gradually increase diet as tolerated. * If you have any concerns or questions, call your surgeon's office. If physician is unavailable and it is an emergency, call 911 or go to the nearest emergency room. Instructions Activity Recommendations: limitations as noted below Recommended Home Diet: resume previous diet Allergies: Coded Allergies: Codeine (Unverified Allergy, Intermediate, VOMITING, 11/29/17) Tetanus Toxoid (Unverified Allergy, Intermediate, redness and swelling, ) Provider Instructions ACTIVITY RECOMMENDATIONS: Resume activities as tolerated with no limitations unless specified. __ No lifting over __ pounds for 24 hours. __ Do not engage in vigorous exercise, sexual activity, or sports for 24 hours. __ Do not drive or operate any motorized equipment for 24 hours. __ You may return to work/school tomorrow. Follow Up Follow-up with: Dr Skinner as scheduled [facility] Recommendations: Call your doctor if: * Temperature above 101 degrees * Pain not relieved by pain medicine ordered * There is increased drainage or redness from any incision * You have any unanswered questions or concerns. Your Doctors Instructions noted above were prepared by provider Gautam Skinner. Patient Signature Section: Patient Instructions Signature Page Cruz Ray Patient (or Guardian) Signature/Date: I have read and understand the instructions given to me by my caregivers. Caregiver/RN/Doctor Signature/Date: The above-named patient and/or guardian has received patient instructions on this date. + Original Patient Signature Page (only) stays with chart. Please make copy for patient.
--- NOTE | 2018-01-06 12:24 | CARDIOVERSION ---
DATE OF OPERATION: 01/06/2018 SYNCHRONIZED ELECTRICAL CARDIOVERSION REPORT INDICATIONS: Atrial fibrillation with elevated ventricular response rate. BRIEF HISTORY: Patient is a 52-year-old male presented with hospitalization on 11/29/2017 for signs and symptoms of acute sinusitis and was found incidentally to be in atrial fibrillation with rapid response. He was begun on anticoagulation and rate control and is referred now with persistent elevation in heart rates for synchronized electrical cardioversion. PROCEDURE: After procedure and risks were explained in detail to the patient, informed consent was obtained. Patient was sedated via anesthesia consult and patient underwent synchronized electrical cardioversion using single 150 Joule biphasic shock with successful conversion to sinus rhythm. EKG post-procedure demonstrated normal tracing with sinus rhythm with variable rhythm, rate 71, QT corrected 430. RECOMMENDATIONS: Patient will be discharged to home with continued anticoagulation for at least 1-month time with low CHADS score noted. Metoprolol succinate will be reduced to 25 mg twice per day. I attest to the content of the Intraoperative Record and any orders documented therein. Any exception s are noted below.
== END | disposition home or self-care (01) ==
LOC: C.CATH 06:21
PROVIDERS: ATTEND Internal Medicine Cardiovascular Disease
DX: I48.1 Persistent atrial fibrillation (principal); Z88.7 Allergy status to serum and vaccine; Z88.5 Allergy status to narcotic agent

== ENCOUNTER 2023-03-21 02:16 | Observation (INO) ==
[2023-03-21] MEDS ORDERED: ONDANSETRON INJ 2 MG/ML 2 ML VIAL IV STA ×2 (02:44→04:20)
[2023-03-21] MEDS ORDERED: KETOROLAC 30 MG/ML VIAL IV ONE (02:44)
[2023-03-21] MEDS ORDERED: HYDROmorphone INJ 0.5 MG/0.5 ML SYR IV STA (02:45)
--- NOTE | 2023-03-21 02:56 | Emergency Department Note ---
Impression & Plan Hydronephrosis with renal and ureteral calculus obstruction, SHANTELLE (acute kidney injury) Admit to the [facility] ED Provider Note NAME: EVONNE VIDAL AGE: 57 SEX: M ARRIVES VIA: Walk-In INFORMANT: Patient ED PROVIDER(S): Flory Champion DO CHIEF COMPLAINT: Right flank pain/right-sided back pain PLAN: Disposition: Admit to the [facility] Condition: Fair MEDICAL DECISION MAKING: This is a 57-year-old male patient who was diagnosed last week with a proximal right-sided kidney stone and presents with persistent pain. Laboratory studies show an elevated creatinine to 1.71. There is no significant leukocytosis. H&H are stable. Patient's pain was controlled with IV Toradol and IV Dilaudid. Patient received multiple doses of IV Zofran for persistent nausea. He was gi justice IV normal saline solution. Urinalysis showed no obvious signs of infection. A KUB was obtained to further determine the location of the right-sided ureteral stone. I discussed the case with the [facility] to evaluate for further inpatient care and consult urology. Triage Nursing notes reviewed and agree with them. Prior medical records were reviewed Vital Signs: reviewed and unremarkable Differential diagnosis: Obstructive uropathy, ureteral colic, UTI ER treatment provided: IV normal saline bolus IV Dilaudid IV Zofran x2 Diagnostics interpreted by me: Laboratory studies: See below Imaging studies: As per my independent interpretation KUB: A right-sided stone can be seen HPI: 57/M arrives for evaluation of right-sided back pain/right flank pain. Patient was diagnosed last week with a proximal ureteral [address] scan (03/13.) Patient was discharged home on Flomax, oxycodone, and Zofran. Patient in follow-up 5 days ago with his PCP and was prescribed a higher dose of oral Zo bradley. He was doing well. In fact yesterday, his pain had completely resolved to the point that he thought he had passed the stone. Unfortunately, the pain returned tonight. He took his last dose of oxycodone tonight. PAST MEDICAL HISTORY:See Below FAMILY HISTORY:See Below SOCIAL HISTORY:Patient lives with his . He does not smoke. HOME MEDICATIONS:See list ALLERGIES:See list VITALS:See Below PHYSICAL EXAMINATION: HEENT: Head - normocephalic and atraumatic. Pupils are equal, round, and reactive to light. Extraocular eye muscles are intact, and sclera are anicteric. Nose - moist nasal mucosa without discharge. Mouth - moist buccal mucosa. Oropharynx is nonerythematous and there is no tonsillar exudate or edema noted. Neck: Supple; no cervical lymphadenopathy or JVD Heart: Regular rate and rhythm. There is a normal S1 and S2 with no murmurs, clicks, or gallops appreciated. Lungs: Clear to auscultation bilaterally with no wheezes, rales, or rhonchi. Abdomen: Soft, completely nontender, nondistended, with good bowel sounds. There are no palpable pulsatile masses or hepatosplenomegaly. There is no guarding, rigidity, or rebound noted. Extremities: No evidence of cyanosis, clubbing, or edema. There are easily palpable peripheral pulses. Skin: Pale, warm and dry with good turgor and no rashes. Back: Mild reproducible discomfort with palpation over the right mid back and right CVA ED COURSE: Times/Reassessments: 225: Patient was evaluated in room C3. A complete history and physical was performed. IV lock was initiated and labs were drawn as above. The patient was bolused with IV normal saline solution. He was given a dose of IV Zofran and IV Dilaudid for his pain. Patient will go for KUB. Upon repeat evaluation, the patient was still quite nauseated. He was given a second dose of IV Zofran. I reviewed the results of the labs with the patient. I discussed the case with the [facility] and they will evaluate for further management. Flory Champion DO Past Med/Surg History Medical History (Updated 03/21/23 @ 07:14 by Flory Champion DO) Afib IBS (irritable bowel syndrome) Social History Smoking Status: Never smoker Preferred Language: Danish Feels Safe at Home: Yes Allergies Allergies Allergy/AdvReac Type Severity Reaction Status Date / Time codeine Allergy Intermediate VOMITING Verified 03/13/23 01:22 tetanus toxoid, adsorbed Allergy Intermediate redness Verified 03/13/23 01:22 and swelling Home Meds Home Medications Medication Instructions Recorded Confirmed apixaban 5 mg tablet (Eliquis) 5 mg PO BID 03/13/23 03/21/23 metoprolol succinate 25 mg 37.5 mg PO BID 03/13/23 03/21/23 tablet,extended release 24 hr dicyclomine 10 mg capsule 10 mg PO QID 03/21/23 03/21/23 ondansetron HCl 8 mg tablet 8 mg PO BID PRN Nausea 03/21/23 03/21/23 Previous Rx's Medication Instructions Recorded oxycodone 5 mg tablet 5 mg PO Q6H PRN pain #10 tabs 03/13/23 tamsulosin 0.4 mg capsule (Flomax) 0.4 mg PO DAILY #7 caps 03/13/23 Results & Data (ED) Vital Signs Vital Signs - 24 hr 03/21/23 02:20 03/21/23 03:07 03/21/23 03:17 Temperature 36.1 C L Temperature Source Temporal Artery Scan Pulse Rate 98 H 90 107 H Pulse Rate from SpO2 Sensor 98 H Respiratory Rate 18 18 18 Respiratory Depth Normal Blood Pressure 138/93 Blood Pressure Mean 108 Pulse Oximetry 96 96 96 Oxygen Delivery Method Room Air Sepsis Recent Fever Within 48 Hours No Sepsis New/Unexplained Change in Mental Status No Sepsis Action Taken by Nursing No Action Required 03/21/23 03:30 03/21/23 04:00 03/21/23 03:11 Temperature Temperature Source Pulse Rate 91 H 98 H 92 H Pulse Rate from SpO2 Sensor 89 103 H Respiratory Rate 18 18 Respiratory Depth Blood Pressure Blood Pressure Mean Pulse Oximetry 96 95 Oxygen Delivery Method Sepsis Recent Fever Within 48 Hours Sepsis New/Unexplained Change in Mental Status Sepsis Action Taken by Nursing 03/21/23 04:30 Temperature Temperature Source Pulse Rate 89 Pulse Rate from SpO2 Sensor 83 Respiratory Rate 18 Respiratory Depth Blood Pressure Blood Pressure Mean Pulse Oximetry 94 Oxygen Delivery Method Sepsis Recent Fever Within 48 Hours Sepsis New/Unexplained Change in Mental Status Sepsis Action Taken by Nursing Laboratory Data 03/21/23 03:00 03/21/23 03:00 Lab Results 03/21/23 03/21/23 03/21/23 Range/Units 03:00 03:00 04:11 WBC 11.39 H (4.8-10.8) K/ul RBC 4.78 (4.70-6.10) M/uL Hgb 14.3 (14.0-18.0) g/dl Hct 40.2 L (42.0-52.0) % MCV 84.1 (80.0-100.0) fL MCH 29.9 (25.0-34.0) pg MCHC 35.6 (32.0-36.0) g/dL RDW Std Deviation 36.5 (36.4-46.3) fL RDW Coeff of Catalino 11.9 (11.5-14.5) % Plt Count 313 (130-400) K/uL MPV 9.2 L (9.4-12.4) fL Immature Gran % (Auto) 0.4 % Neut % (Auto) 73.0 % Lymph % (Auto) 14.4 % [place] % (Auto) 9.0 % Eos % (Auto) 2.6 % Baso % (Auto) 0.6 % Neut # (Auto) 8.30 H (1.40-6.50) K/uL Lymph # (Auto) 1.64 (1.2-3.4) K/uL [place] # (Auto) 1.03 H (0.11-0.59) K/uL Eos # (Auto) 0.30 (0-0.50) K/uL Baso # (Auto) 0.07 (0-0.2) K/uL Immature Gran # (Auto) 0.05 (0.01-0.20) K/uL Sodium 136 (136-145) mmol/L Potassium 4.1 (3.5-5.1) mmol/L Chloride 104 (98-107) mmol/L Carbon Dioxide 26 (21-32) mmol/L Anion Gap 6 (3-11) BUN 20 (6-23) mg/dl Creatinine 1.71 H (0.6-1.4) mg/dl Est Cr Clr Drug Dosing 60.6 ml/min Est GFR ( Amer) 50.4 ml/min Est GFR (Non-Af Amer) 43.5 ml/min BUN/Creatinine Ratio 11.7 (10-20) Glucose 108 H (70-99(Fasting)) mg/dl Calcium 8.8 (8.6-10.3) mg/dl Magnesium 1.9 (1.7-2.4) mg/dl Total Bilirubin 0.9 (0.2-1.0) mg/dl AST 23 (13-39) U/L ALT 24 (7-52) U/L Alkaline Phosphatase 54 (34-104) U/L Total Protein 7.2 (6.0-8.3) gm/dl Albumin 4.0 (3.4-5.0) gm/dl Globulin 3.2 (2.5-4.0) gm/dl Albumin/Globulin Ratio 1.3 (0.9-2) Lipase 21 (11-82) U/L SARS-CoV-2, RNA, NAAT NEGATIVE (NEGATIVE) Administered Medications Sodium Chloride (Nss 1000ml) 1,000 mls @ 100 mls/hr IV .Q10H ONE Stop: 03/21/23 15:59 Last Admin: 03/21/23 06:18 Dose: 100 mls/hr Documented By: DELTA Magnesium Sulfate/Dextrose (Magnesium Sulfate / D5w) 1 gm in 100 mls @ 50 mls/hr IV ONE ONE Stop: 03/21/23 07:59 Last Admin: 03/21/23 06:18 Dose: 50 mls/hr Documented By: DELTA Metoprolol Succinate (Metoprolol Succ 25mg Ext Rel Tab) 37.5 mg PO BID JESUS ALBERTO Stop: 04/20/23 05:32 Last Admin: 03/21/23 06:19 Dose: 37.5 mg Documented By: DELTA Discontinued Medications Hydromorphone HCl (Hydromorphone Inj 0.5 Mg/0.5 Ml Syr) 0.5 mg IV NOW STA Stop: 03/21/23 02:46 Last Admin: 03/21/23 03:03 Dose: 0.5 mg Documented By: DELTA Sodium Chloride (Nss 1000ml) 1,000 mls @ 999 mls/hr IV .Q1H1M ONE Stop: 03/21/23 05:20 Last Infusion: 03/21/23 06:24 Dose: 0 mls/hr Documented By: Admin: 03/21/23 05:17 Dose: 999 mls/hr Documented By: DELTA Cefepime HCl (Maxipime) 2,000 mg in 20 mls @ 5 mls/min IV NOW STA; Protocol Stop: 03/21/23 04:54 Last Admin: 03/21/23 05:15 Dose: 5 mls/min Documented By: DELTA Ketorolac Tromethamine (Ketorolac 30 Mg/Ml Vial) 30 mg IV NOW ONE Stop: 03/21/23 02:45 Last Admin: 03/21/23 03:03 Dose: 30 mg Documented By: DELTA Ondansetron HCl (Ondansetron Inj 2 Mg/Ml 2 Ml Vial) 4 mg IV NOW STA Stop: 03/21/23 02:45 Last Admin: 03/21/23 03:03 Dose: 4 mg Documented By: DELTA Ondansetron HCl (Ondansetron Inj 2 Mg/Ml 2 Ml Vial) 4 mg IV NOW STA Stop: 03/21/23 04:21 Last Admin: 03/21/23 05:08 Dose: Not Given Documented By: DELTA Tamsulosin HCl (Tamsulosin Hcl 0.4 Mg Cap) 0.4 mg PO NOW ONE Stop: 03/21/23 04:58 Last Admin: 03/21/23 05:15 Dose: 0.4 mg Documented By: DELTA Imaging Data Radiologist's Impression: KUB X-Ray 03/21/23 02:46 KUB CLINICAL HISTORY: Right ureteral stone. FINDINGS: 3 AP supine abdominal radiographs are correlated with abdominal CT dated 03/13/2023. There is a nonobstructed abdominal bowel gas pattern. Moderate fecal retention is seen throughout the colon. A 4 mm calcification projecting over the right vesicoureteral junction likely represents a distal ureteral stone when correlated with the recent CT scan. No additional calcifications are identified projecting over either kidney. There is a large phlebolith in the right hemipelvis. A surgical clip projects over the left inguinal canal. The bony structures appear intact. IMPRESSION: A 4 mm calcification projecting over the right vesicoureteral junction likely corresponds to the ureteral stone seen on the recent CT scan. This has progressed distally as compared to previous. Electronically signed by: Andrade Vegas M.D. 03/21/2023 7:16 AM Chest X-Ray 03/21/23 04:13 SINGLE VIEW CHEST CLINICAL HISTORY: Renal failure. FINDINGS: An AP, portable, upright chest radiograph is compared to study dated 11/29/2017. The heart is enlarged. The pulmonary vasculature is noncongested. The lungs and pleural spaces are clear. No pneumothorax is seen. The bony thorax is grossly intact. IMPRESSION: Cardiomegaly with no acute cardiopulmonary abnormality identified. ACT 112: Negative or not required by law. Electronically signed by: Andrade Vegas M.D. 03/21/2023 6:47 AM Discharge Plan Visit Data Chief Complaint: Kidney Stone Stated Complaint: KIDNEY STONE-FLANK PAIN,NAUSEA ED Provider: Flory Champion Discharge Problem: Hydronephrosis with renal and ureteral calculus obstruction, SHANTELLE (acute kidney injury) Patient Disposition: Admitted As Inpatient Discharge Instructions Interventions: ED Discharge Assessment Last Done: 03/21/23 05:32
[2023-03-21 03:34] LABS: Basophils # (auto) 0.07 K/uL (0-0.2); Basophils % (auto) 0.6 %; Eosinophils % (auto) 2.6 %; Hematocrit (blood only) 40.2 % (42.0-52.0); Hemoglobin 14.3 g/dl (14.0-18.0); Immature Granulocytes # (auto) 0.05 K/uL (0.01-0.20); Immature Granulocytes % (auto) 0.4 %; Lymphocytes # (auto) 1.64 K/uL (1.2-3.4); Lymphocytes % (auto) 14.4 %; Mean Corpuscular Hemoglobin 29.9 pg (25.0-34.0); Mean Corpuscular Hgb Conc 35.6 g/dL (32.0-36.0); Mean Corpuscular Volume 84.1 fL (80.0-100.0); Mean Platelet Volume 9.2 fL (9.4-12.4); Monocytes # (auto) 1.03 K/uL (0.11-0.59); Platelet Count 313 K/uL (130-400); RDW Coefficient of Variation 11.9 % (11.5-14.5); RDW Standard Deviation 36.5 fL (36.4-46.3); Red Blood Count 4.78 M/uL (4.70-6.10); White Blood Count 11.39 K/ul (4.8-10.8)
[2023-03-21 03:35] LABS: Albumin Globulin Ratio 1.3 (0.9-2); BUN Creatinine Ratio 11.7 (10-20); Bilirubin,Total 0.9 mg/dl (0.2-1.0); Calcium 8.8 mg/dl (8.6-10.3); Creatinine Clr Calc Pharmacy 60.6 ml/min; Est GFR (African American) 50.4 ml/min; Est GFR (Non-African American) 43.5 ml/min; Globulin 3.2 gm/dl (2.5-4.0); Potassium 4.1 mmol/L (3.5-5.1); Total Protein 7.2 gm/dl (6.0-8.3)
[2023-03-21] MEDS ORDERED: SODIUM CHLORIDE 0.9% 1000ML 1,000 ML IV ONE ×2 (04:20→06:00)
[2023-03-21] MEDS ORDERED: CEFEPIME 2,000 MG/20 ML VIAL IV STA (04:51)
--- NOTE | 2023-03-21 04:52 | History & Physical Report ---
Date of Service March 21, 2023 Assessment & Plan (1) Sepsis: Plan: Severe sepsis SIRS plus ARF Secondary to complicated UTI/obstructive uropathy A-fib on Eliquis status post cardioversion, rate controlled hypertension, stable Medical telemetry CS, Cefepime Monitor creatinine response to IVF Continue Flomax Urology consult Re: Obstructive uropathy causing kidney dysfunction, sepsis Hold Eliquis, n.p.o. until patient seen by urology anticipation of procedure DVT prophylaxis. SCDs while Eliquis on hold Full code Text document was generated using [email or web address] voice recognition software. It may contain grammatical or spelling errors. Kindly contact undersigned for clarification of any documentation item in question. History of Present Illness Chief Complaint: Kidney stone pain Primary Care Provider: Gokul Will History obtained from patient, family, and records. Medical history significant for A-fib on Eliquis status post cardioversion, hypertension. Last confinement November 2017 for new onset A-fib. Patient discharged on Metoprolol and Eliquis. Subsequently underwent cardioversion outpatient. Last week, patient had sudden onset right-sided flank pain and urinary retention. Patient consulted ER last March 13. CT abdomen pelvis showed moderate right hydronephrosis extending to a 3 mm proximal ureteric calculus. Patient had nitrite positive urine. Patient discharged on oxycodone and Flomax. Instructed to strain urine, increase fluid intake and follow-up with urology if stone does not pass in 7 days. Additional instructions to return to ER for fever, vomiting and worsening pain. Tolerable pain at home until patient ran out off medications. Right flank pain going to his groin Hematuria noted at home with chills. Poor appetite the last 2 days. Patient not sure if he passed the stone. No chest pain, no headache, no shortness of breath. Patient brought to ER by . 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 Allergies Allergy/AdvReac Type Severity Reaction Status Date / Time codeine Allergy Intermediate VOMITING Verified 03/13/23 01:22 tetanus toxoid, adsorbed Allergy Intermediate redness Verified 03/13/23 01:22 and swelling Home Medications Medication Instructions Recorded Confirmed Type apixaban 5 mg tablet (Eliquis) 5 mg PO BID 03/13/23 03/21/23 History metoprolol succinate 25 mg 37.5 mg PO BID 03/13/23 03/21/23 History tablet,extended release 24 hr oxycodone 5 mg tablet 5 mg PO Q6H PRN pain #10 tabs 03/13/23 03/21/23 Rx tamsulosin 0.4 mg capsule (Flomax) 0.4 mg PO DAILY #7 caps 03/13/23 03/21/23 Rx dicyclomine 10 mg capsule 10 mg PO QID 03/21/23 03/21/23 History ondansetron HCl 8 mg tablet 8 mg PO BID PRN Nausea 03/21/23 03/21/23 History Past Med/Surg History Medical History (Updated 03/21/23 @ 07:42 by Kenji Pierce MD) Afib IBS (irritable bowel syndrome) Social History Smoking Status: Never smoker Second Hand Exposure: No; Do You Dip or Chew Tobacco: No; Hx Alcohol Use: No Hx Substance Use: No Preferred Language: Syriac Communication Ability: Effective Business Controller 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 Beliefs That Will Affect Care: None Current Living Situation: Spouse Feels Safe at Home: Yes Assistive Devices: Glasses Review of Systems Review of Systems: As per HPI, all other systems reviewed and negative Physical Exam Physical Exam: GENERAL: Comfortable, pleasant, obese, no respiratory distress SKIN: Normal color, warm HEENT: Alopecia, [place] palpebral conjunctivae, no ptosis, dry buccal mucosa NECK : Supple, short neck, no tenderness CHEST : CTA, no tenderness HEART : Irregular, no obvious murmurs ABDOMEN: Some distention, right abdominal tenderness EXTREMITIES : Minimal LE swelling, no LE tenderness, no other conspicuous deformities noted NEUROLOGIC : Coherent, no facial asymmetry, no other gross focality Results & Data Results & Data Vital Signs (Past 12 Hours) Vital Signs Temp Pulse Resp BP Pulse Ox O2 Del Method 03/21/23 04:00 98 H 18 95 03/21/23 03:30 91 H 18 96 03/21/23 03:17 107 H 18 96 03/21/23 03:07 90 18 96 03/21/23 02:20 36.1 C L 98 H 18 138/93 96 Room Air Laboratory Results Laboratory Results WBC 11.39 K/ul (4.8-10.8) H 03/21/23 03:00 RBC 4.78 M/uL (4.70-6.10) 03/21/23 03:00 Hgb 14.3 g/dl (14.0-18.0) 03/21/23 03:00 Hct 40.2 % (42.0-52.0) L 03/21/23 03:00 MCV 84.1 fL (80.0-100.0) 03/21/23 03:00 MCH 29.9 pg (25.0-34.0) 03/21/23 03:00 MCHC 35.6 g/dL (32.0-36.0) 03/21/23 03:00 RDW Std Deviation 36.5 fL (36.4-46.3) 03/21/23 03:00 RDW Coeff of Catalino 11.9 % (11.5-14.5) 03/21/23 03:00 Plt Count 313 K/uL (130-400) 03/21/23 03:00 MPV 9.2 fL (9.4-12.4) L 03/21/23 03:00 Immature Gran % (Auto) 0.4 % 03/21/23 03:00 Neut % (Auto) 73.0 % 03/21/23 03:00 Lymph % (Auto) 14.4 % 03/21/23 03:00 [place] % (Auto) 9.0 % 03/21/23 03:00 Eos % (Auto) 2.6 % 03/21/23 03:00 Baso % (Auto) 0.6 % 03/21/23 03:00 Neut # (Auto) 8.30 K/uL (1.40-6.50) H 03/21/23 03:00 Lymph # (Auto) 1.64 K/uL (1.2-3.4) 03/21/23 03:00 [place] # (Auto) 1.03 K/uL (0.11-0.59) H 03/21/23 03:00 Eos # (Auto) 0.30 K/uL (0-0.50) 03/21/23 03:00 Baso # (Auto) 0.07 K/uL (0-0.2) 03/21/23 03:00 Immature Gran # (Auto) 0.05 K/uL (0.01-0.20) 03/21/23 03:00 Sodium 136 mmol/L (136-145) 03/21/23 03:00 Potassium 4.1 mmol/L (3.5-5.1) 03/21/23 03:00 Chloride 104 mmol/L (98-107) 03/21/23 03:00 Carbon Dioxide 26 mmol/L (21-32) 03/21/23 03:00 Anion Gap 6 (3-11) 03/21/23 03:00 BUN 20 mg/dl (6-23) 03/21/23 03:00 Creatinine 1.71 mg/dl (0.6-1.4) H 03/21/23 03:00 Est Cr Clr Drug Dosing 60.6 ml/min 03/21/23 03:00 Est GFR ( Amer) 50.4 ml/min 03/21/23 03:00 Est GFR (Non-Af Amer) 43.5 ml/min 03/21/23 03:00 BUN/Creatinine Ratio 11.7 (10-20) 03/21/23 03:00 Glucose 108 mg/dl (70-99(Fasting)) H 03/21/23 03:00 Calcium 8.8 mg/dl (8.6-10.3) 03/21/23 03:00 Total Bilirubin 0.9 mg/dl (0.2-1.0) 03/21/23 03:00 AST 23 U/L (13-39) 03/21/23 03:00 ALT 24 U/L (7-52) 03/21/23 03:00 Alkaline Phosphatase 54 U/L (34-104) 03/21/23 03:00 Total Protein 7.2 gm/dl (6.0-8.3) 03/21/23 03:00 Albumin 4.0 gm/dl (3.4-5.0) 03/21/23 03:00 Globulin 3.2 gm/dl (2.5-4.0) 03/21/23 03:00 Albumin/Globulin Ratio 1.3 (0.9-2) 03/21/23 03:00 Lipase 21 U/L (11-82) 03/21/23 03:00 SARS-CoV-2, RNA, NAAT NEGATIVE (NEGATIVE) 03/21/23 04:11 Diagnostic Findings Chest x-ray as per my interpretation cardiomegaly EKG as per my interpretation : Rate 100, A-fib, normal axis, T wave abnormali ties inferior leads, PVCs
[2023-03-21] MEDS ORDERED: PROMETHAZINE HCL 12.5 MG in SODIUM CHLORIDE 0.9% 50 ML IV PRN (04:57)
[2023-03-21] MEDS ORDERED: LORazepam 0.5 MG TAB PO PRN (04:57)
[2023-03-21] MEDS ORDERED: TAMSULOSIN HCL 0.4 MG CAP PO ONE (04:57)
[2023-03-21] MEDS ORDERED: oxyCODONE HCL IR 5 MG TAB (IMMEDIATE RELEASE) PO PRN (04:57)
[2023-03-21] MEDS ORDERED: HYDROmorphone INJ 0.5 MG/0.5 ML SYR IV PRN (04:57)
[2023-03-21 05:00] LABS: Magnesium 1.9 mg/dl (1.7-2.4)
[2023-03-21] MEDS ORDERED: ACETAMINOPHEN 325 MG TAB PO PRN (05:00)
[2023-03-21] MEDS ORDERED: METOPROLOL SUCC 25MG EXT REL TAB PO SCH (05:33)
[2023-03-21 05:37] LABS: Appearance Urine Clear (Clear); Bacteria Urine Automated Negative (Negative); Bilirubin Urine Negative (Negative); Blood Urine 3+ (Negative); Cast Urine Automated 0 /lpf (0-5); Color Urine Yellow; Epithelial Cell Urine Auto 0-5 /lpf (0-5); Glucose Urine UA Negative (Negative); Ketones Urine Negative (Negative); Leukocyte Esterase Urine Trace (Negative); Nitrite Urine Negative (Negative); Protein Urine Trace (Negative); RBC Urine Automated 0-4 /hpf (0-4); Urobilinogen Urine Negative (Negative); pH Urine 5.5 (4.5-7.5)
[2023-03-21] MEDS ORDERED: MAGNESIUM SULFATE / D5W 1 GM/100 ML BAG IV ONE (06:00)
--- NOTE | 2023-03-21 06:48 | XRay Report ---
SINGLE VIEW CHEST CLINICAL HISTORY: Renal failure. FINDINGS: An AP, portable, upright chest radiograph is compared to study dated 11/29/2017. The heart i s enlarged. The pulmonary vasculature is noncongested. The lungs and pleural spaces are clear. No pne umothorax is seen. The bony thorax is grossly intact. IMPRESSION: Cardiomegaly with no acute cardiopulmonary abnormality identified. ACT 112: Negative or not required by law. Electronically signed by: Andrade Vegas M.D. 03/21/2023 6:47 AM
--- NOTE | 2023-03-21 07:18 | XRay Report ---
KUB CLINICAL HISTORY: Right ureteral stone. FINDINGS: 3 AP supine abdominal radiographs are correlated with abdominal CT dated 03/13/2023. There is a nonobstructed abdominal bowel gas pattern. Moderate fecal retention is seen throughout the colon. A 4 mm calcification projecting over the right vesicoureteral junction likely represents a distal ure teral stone when correlated with the recent CT scan. No additional calcifications are identified proj ecting over either kidney. There is a large phlebolith in the right hemipelvis. A surgical clip proje cts over the left inguinal canal. The bony structures appear intact. IMPRESSION: A 4 mm calcification projecting over the right vesicoureteral junction likely corresponds to the ureteral stone seen on the recent CT scan. This has progressed distally as compared to previo us. Electronically signed by: Andrade Vegas M.D. 03/21/2023 7:16 AM
[2023-03-21] MEDS ORDERED: SODIUM CHLORIDE 0.9% 1000ML 1,000 ML IV SCH (07:45)
--- NOTE | 2023-03-21 08:48 | Urology Consultation ---
Date of Consultation March 21, 2023 Assessment & Plan (1) Right ureteral calculus: (2) Hydronephrosis with renal and ureteral calculus obstruction: (3) SHANTELLE (acute kidney injury): 57-year-old male admitted for intractable right flank pain secondary to an obstructing 4 mm distal ureteral calculus. Patient is afebrile and hemodynamically stable. Labs reviewedcreatinine 1.71, WBC 11.39. KUB shows distal migration of known right ureteral stone, now located at UVJ. Urinalysis on arrival was negative for bacteria and nitrates. Blood cultures pending. Continue broad-spectrum antibiotics and narrow per sensitivity data when available. Pain is currently improved/tolerable to him. Discussed options for stone management including trial of passage vs surgical intervention. Discussed inpatient surgical options including right ureteral stent placement and possible stone treatment. Discussed outpatient procedures including ESWL or ureteroscopy, laser lithotripsy, and stent placement. Procedures, success rates, risks, benefits and clinical courses reviewed. Stone free rates were also discussed as well as possibility of multiple procedures. Ureteral stents were discussed as well as post-operative issues and pain management. After discussion, he elects trial of passage. Plan: - Okay to resume diet today - Make NPO at HI to reassess - Continue IV and oral hydration, Flomax, and supportive care with prn analgesia and antiemetics - Continue antibiotics and follow culture - Strain all urine - will follow History of Present Illness Reason for Consultation: Obstructive uropathy Requesting Physician: Dr. Pierce Attending Physician: James Phillips MD History of Present Illness 57-year-old M with history of right-sided obstructing ureteral stone. Patient initially presented to the emergency department on 03/13/23 with right flank pain and a CT scan was performed. CT showed a 3 mm right proximal ureteral calculus with mild to moderate hydronephrosis. Labs showed creatinine 1.37, WBC 8.66. Urinalysis showed 2+ protein, 3+ blood, positive nitrates, 1+ leukocytes, >30 RBC, >30 epithelials, calcium oxalate crystals present, negative for bacteria. He was discharged from the ED with oxycodone, tamsulosin and ondansetron. He returned to the ED today with persistent right flank pain. Labs showed creatinine 1.71, WBC 11.39, Hgb 14.3. Urinalysis notable for trace protein, 3+ blood, trace leukocytes, negative for bacteria and nitrates. Blood cultures obtained and pending. KUB imaging showed a 4 mm right UVJ stone. ED course: IV cefepime, IV fluids, IV Zofran, IV Ketorolac and hydromorphone. He was admitted to the hospital medicine service. Urology is consulted for obstructive uropathy. He was afebrile and hemodynamically stable in the ED. Reports pain is controlled now, rated 4 out of 10. He is voiding spontaneously. Notes mild discomfort with void. No hematuria. Denies nausea, vomiting, fever or chills at present. Currently NPO. History of afib on Eliquis. Reports this is a first stone for him. Reports family history of stonesfather. Allergies Allergy/AdvReac Type Severity Reaction Status Date / Time codeine Allergy Intermediate VOMITING Verified 03/13/23 01:22 tetanus toxoid, adsorbed Allergy Intermediate redness Verified 03/13/23 01:22 and swelling Home Medications Medication Instructions Recorded Confirmed Type apixaban 5 mg tablet (Eliquis) 5 mg PO BID 03/13/23 03/21/23 History metoprolol succinate 25 mg 37.5 mg PO BID 03/13/23 03/21/23 History tablet,extended release 24 hr oxycodone 5 mg tablet 5 mg PO Q6H PRN pain #10 tabs 03/13/23 03/21/23 Rx tamsulosin 0.4 mg capsule (Flomax) 0.4 mg PO DAILY #7 caps 03/13/23 03/21/23 Rx dicyclomine 10 mg capsule 10 mg PO QID 03/21/23 03/21/23 History ondansetron HCl 8 mg tablet 8 mg PO BID PRN Nausea 03/21/23 03/21/23 History Patient History Medical History Afib IBS (irritable bowel syndrome) Social History Smoking Status: Never smoker Second Hand Exposure: No; Do You Dip or Chew Tobacco: No; Tobacco Cessation Education Requested by Patient: No Hx Alcohol Use: No Hx Substance Use: No Preferred Language: [place] Communication Ability: Effective 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 Beliefs That Will Affect Care: None Current Living Situation: Spouse Other Information That Helps Us Care for You: No Feels Safe at Home: Yes Safety Concerns: Feels Safe At This Time Assistive Devices: Glasses Review of Systems Review of Systems: All systems reviewed & are unremarkable except as noted in HPI & below Physical Exam Physical Exam: General: well-appearing, no acute distress, nontoxic HEENT: Normocephalic, mucous membranes moist Pulmonary: Nonlabored respirations Abdomen: Nondistended Extremities: Moves all 4 spontaneously Neuro: No gross deficits Psych: alert and oriented, normal mood Skin: Warm, dry, no rashes noted : no CVA tenderness Results & Data Vital Signs (Past 12 Hours) Vital Signs Temp Pulse Pulse Resp BP BP Pulse Ox 03/21/23 07:49 36.6 C 78 20 98 03/21/23 07:04 86 20 119/92 96 03/21/23 07:04 03/21/23 06:51 83 03/21/23 06:30 98 H 16 96 03/21/23 06:00 90 21 96 03/21/23 05:30 91 H 20 94 03/21/23 05:19 103 H 16 95 03/21/23 04:30 89 18 94 03/21/23 03:11 92 H 03/21/23 04:00 98 H 18 95 03/21/23 03:30 91 H 18 96 03/21/23 03:17 107 H 18 96 03/21/23 03:07 90 18 96 03/21/23 02:20 36.1 C L 98 H 18 138/93 96 Pulse Ox O2 Del Method O2 Del Method 03/21/23 07:49 Room Air 03/21/23 07:04 Room Air 03/21/23 07:04 95 Room Air 03/21/23 06:51 03/21/23 06:30 03/21/23 06:00 03/21/23 05:30 03/21/23 05:19 03/21/23 04:30 03/21/23 03:11 03/21/23 04:00 03/21/23 03:30 03/21/23 03:17 03/21/23 03:07 03/21/23 02:20 Room Air PG Care Time/CCT Total # of Minutes Spent Total Time Spent with Patient: Total time spent is greater than 50% in coordination of care (as documented) at patient's floor/unit and/or counseling patient: Coding Level of Care Code 49119 IN/OBS CONSULT LVL 3,45M Diagnoses Right ureteral calculus N20.1 Hydronephrosis with renal and ureteral calculus obstruction N13.2 SHANTELLE (acute kidney injury) N17.9 Time Spent (min) 50
--- NOTE | 2023-03-21 13:09 | Electrocardiogram Report ---
Test Reason : Blood Pressure : / mmHG Vent. Rate : 099 BPM Atrial Rate : 000 BPM P-R Int : 000 ms QRS Dur : 076 ms QT Int : 318 ms P-R-T Axes : 000 -09 -24 degrees QTc Int : 408 ms Atrial fibrillation with premature ventricular or aberrantly conducted complexes Poor R wave progression, consider anterior TN vs. lead placement vs. LVH Abnormal ECG When compared with ECG of 06-JAN-2018 07:37, Atrial fibrillation has replaced Sinus rhythm Confirmed by Juan Ramon Regan ([id number]) on 03/21/2023 1:09:20 PM Referred By: REFERRED SELF Confirmed By:Juan Ramon Regan
--- NOTE | 2023-03-21 19:36 | Hospitalist Progress Note ---
Date of Service March 21, 2023 delayed entry date of service noted above Assessment & Plan (1) Sepsis: Plan: Severe sepsis SIRS plus ARF Secondary to complicated UTI/obstructive uropathy A-fib on Eliquis status post cardioversion, rate controlled hypertension, stable Medical telemetry CS, Cefepime Monitor creatinine response to IVF Continue Flomax Urology consult Re: Obstructive uropathy causing kidney dysfunction, sepsis Hold Eliquis, n.p.o. until patient seen by urology anticipation of procedure DVT prophylaxis. SCDs while Eliquis on hold Full code Text document was generated using [employer] voice recognition software. It may contain grammatical or spelling errors. Kindly contact undersigned for clarification of any documentation item in question. (2) Right ureteral calculus: Plan: KUB: A 4 mm calcification projecting over the right vesicoureteral junction likely corresponds to the ureteral stone seen on the recent CT scan. This has progressed distally as compared to previous. Urologist consulted Recommended IV fluids, tamsulosin, pain control plan and if no improvement subsequent to inpatient cystoscopy Patient improved with above management Patient prefers to continue aggressive oral fluid intake, Flomax, pain control Prescriptions: Flomax, oxycodone, Zofran , Cephalexin for possible UTI We will follow-up urine and blood cultures and will call patient for results plan of care discussed with patient in detail and at length all questions answered he is understanding, agreeable, comfortable with the plan of care Admission and Anticipated Discharge Date Admission Date: March 21, 2023 Subjective ff up for ureteral stone, etc. Seen resting in bed, sitting up, not in distress States right groin pain feels improved, manageable Denies problems with voiding, dysuria, hematuria, fevers or chills Nausea and vomiting also resolved Review of Systems Review of Systems: all noted and negative except for above Physical Exam Physical Exam: General- oriented x 3, not in distress, speaks in sentences with no effort or accessory muscle use Eyes- anicteric Neck- no JVD Lungs- clear breath sounds bilaterally, no rales/wheezes Heart- normal rate, regular rhythm; no murmurs Abdomen- normal bowel sounds, nondistended, soft, nontender no CVA tenderness Extremities- no pretibial edema, no calf tenderness Neuro- alert, oriented x 3; no gross focal neurologic deficits Skin- warm & dry Results & Data Results & Data Vital Signs (Past 12 Hours) Vital Signs Temp Pulse Resp BP Pulse Ox O2 Del Method 03/21/23 14:53 36.6 C 88 17 146/114 H 97 03/21/23 14:46 88 17 146/114 H 97 Room Air 03/21/23 12:20 79 21 143/103 H 97 Room Air 03/21/23 09:04 78 20 134/90 98 Room Air 03/21/23 07:49 36.6 C 78 20 98 Room Air all noted and reviewed including below
--- NOTE | 2023-03-21 19:36 | Discharge Summary ---
Discharge Summary Date of Service March 21, 2023 delayed entry date of service noted above Notes For Next Care Provider Medication Changes From Visit Cephalexin 4 times daily x7 days Flomax daily Zofran as needed Oxycodone as needed Admission HPI Per Admitting Provider History obtained from patient, family, and records. Medical history significant for A-fib on Eliquis status post cardioversion, hypertension. Last confinement November 2017 for new onset A-fib. Patient discharged on Metoprolol and Eliquis. Subsequently underwent cardioversion outpatient. Last week, patient had sudden onset right-sided flank pain and urinary retention. Patient consulted ER last March 13. CT abdomen pelvis showed moderate right hydronephrosis extending to a 3 mm proximal ureteric calculus. Patient had nitrite positive urine. Patient discharged on oxycodone and Flomax. Instructed to strain urine, increase fluid intake and follow-up with urology if stone does not pass in 7 days. Additional instructions to return to ER for fever, vomiting and worsening pain. Tolerable pain at home until patient ran out off medications. Right flank pain going to his groin Hematuria noted at home with chills. Poor appetite the last 2 days. Patient not sure if he passed the stone. No chest pain, no headache, no shortness of breath. Patient brought to ER by . 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 Admission Exam Per Admitting Provider GENERAL: Comfortable, pleasant, obese, no respiratory distress SKIN: Normal color, warm HEENT: Alopecia, [place] palpebral conjunctivae, no ptosis, dry buccal mucosa NECK : Supple, short neck, no tenderness CHEST : CTA, no tenderness HEART : Irregular, no obvious murmurs ABDOMEN: Some distention, right abdominal tenderness EXTREMITIES : Minimal LE swelling, no LE tenderness, no other conspicuous deformities noted NEUROLOGIC : Coherent, no facial asymmetry, no other gross focality Principal Dx & Hospital Course #1 = Principal Diagnosis (1) Right ureteral calculus: KUB: A 4 mm calcification projecting over the right vesicoureteral junction likely corresponds to the ureteral stone seen on the recent CT scan. This has progressed distally as compared to previous. Urologist consulted Recommended IV fluids, tamsulosin, pain control plan and if no improvement subsequent to inpatient cystoscopy Patient improved with above management Patient prefers to continue aggressive oral fluid intake, Flomax, pain control Prescriptions: Flomax, oxycodone, Zofran , Cephalexin for possible UTI We will follow-up urine and blood cultures and will call patient for results plan of care discussed with patient in detail and at length all questions answered he is understanding, agreeable, comfortable with the plan of care Discharge Exam General- oriented x 3, not in distress, speaks in sentences with no effort or accessory muscle use Eyes- anicteric Neck- no JVD Lungs- clear breath sounds bilaterally, no rales/wheezes Heart- normal rate, regular rhythm; no murmurs Abdomen- normal bowel sounds, nondistended, soft, nontender no CVA tenderness Extremities- no pretibial edema, no calf tenderness Neuro- alert, oriented x 3; no gross focal neurologic deficits Skin- warm & dry Updated Medication List Medication Instructions Recorded Confirmed Type apixaban 5 mg tablet (Eliquis) 5 mg PO BID 03/13/23 03/21/23 History metoprolol succinate 25 mg 37.5 mg PO BID 03/13/23 03/21/23 History tablet,extended release 24 hr cephalexin 500 mg capsule 500 mg PO QID 7 days #28 caps 03/21/23 Rx ondansetron 8 mg disintegrating 8 mg PO Q8H PRN nausea and 03/21/23 Rx tablet vomiting #14 tabs ondansetron HCl 8 mg tablet 8 mg PO BID PRN Nausea 03/21/23 03/21/23 History oxycodone 5 mg tablet 5 mg PO Q6H PRN pain #20 tabs 03/21/23 Rx tamsulosin 0.4 mg capsule (Flomax) 0.4 mg PO DAILY 21 days #21 caps 03/21/23 Rx Hospital Stay Data Consultations 03/21/23 04:05 ED Decision to Admit Stat 03/21/23 05:33 Consult Urology Routine Diagnostic Imagining Performed Laboratory Results WBC 11.39 K/ul (4.8-10.8) H 03/21/23 03:00 RBC 4.78 M/uL (4.70-6.10) 03/21/23 03:00 Hgb 14.3 g/dl (14.0-18.0) 03/21/23 03:00 Hct 40.2 % (42.0-52.0) L 03/21/23 03:00 MCV 84.1 fL (80.0-100.0) 03/21/23 03:00 MCH 29.9 pg (25.0-34.0) 03/21/23 03:00 MCHC 35.6 g/dL (32.0-36.0) 03/21/23 03:00 RDW Std Deviation 36.5 fL (36.4-46.3) 03/21/23 03:00 RDW Coeff of [place] 11.9 % (11.5-14.5) 03/21/23 03:00 Plt Count 313 K/uL (130-400) 03/21/23 03:00 MPV 9.2 fL (9.4-12.4) L 03/21/23 03:00 Immature Gran % (Auto) 0.4 % 03/21/23 03:00 Neut % (Auto) 73.0 % 03/21/23 03:00 Lymph % (Auto) 14.4 % 03/21/23 03:00 [place] % (Auto) 9.0 % 03/21/23 03:00 Eos % (Auto) 2.6 % 03/21/23 03:00 Baso % (Auto) 0.6 % 03/21/23 03:00 Neut # (Auto) 8.30 K/uL (1.40-6.50) H 03/21/23 03:00 Lymph # (Auto) 1.64 K/uL (1.2-3.4) 03/21/23 03:00 [place] # (Auto) 1.03 K/uL (0.11-0.59) H 03/21/23 03:00 Eos # (Auto) 0.30 K/uL (0-0.50) 03/21/23 03:00 Baso # (Auto) 0.07 K/uL (0-0.2) 03/21/23 03:00 Immature Gran # (Auto) 0.05 K/uL (0.01-0.20) 03/21/23 03:00 Sodium 136 mmol/L (136-145) 03/21/23 03:00 Potassium 4.1 mmol/L (3.5-5.1) 03/21/23 03:00 Chloride 104 mmol/L (98-107) 03/21/23 03:00 Carbon Dioxide 26 mmol/L (21-32) 03/21/23 03:00 Anion Gap 6 (3-11) 03/21/23 03:00 BUN 20 mg/dl (6-23) 03/21/23 03:00 Creatinine 1.71 mg/dl (0.6-1.4) H 03/21/23 03:00 Est Cr Clr Drug Dosing 60.6 ml/min 03/21/23 03:00 Est GFR ( Amer) 50.4 ml/min 03/21/23 03:00 Est GFR (Non-Af Amer) 43.5 ml/min 03/21/23 03:00 BUN/Creatinine Ratio 11.7 (10-20) 03/21/23 03:00 Glucose 108 mg/dl (70-99(Fasting)) H 03/21/23 03:00 Lactate 0.8 mmol/L (0.4-2.0) 03/21/23 05:15 Calcium 8.8 mg/dl (8.6-10.3) 03/21/23 03:00 Magnesium 1.9 mg/dl (1.7-2.4) 03/21/23 03:00 Total Bilirubin 0.9 mg/dl (0.2-1.0) 03/21/23 03:00 AST 23 U/L (13-39) 03/21/23 03:00 ALT 24 U/L (7-52) 03/21/23 03:00 Alkaline Phosphatase 54 U/L (34-104) 03/21/23 03:00 Total Protein 7.2 gm/dl (6.0-8.3) 03/21/23 03:00 Albumin 4.0 gm/dl (3.4-5.0) 03/21/23 03:00 Globulin 3.2 gm/dl (2.5-4.0) 03/21/23 03:00 Albumin/Globulin Ratio 1.3 (0.9-2) 03/21/23 03:00 Lipase 21 U/L (11-82) 03/21/23 03:00 Urine Color Yellow 03/21/23 05:26 Urine Appearance Clear (Clear) 03/21/23 05:26 Urine pH 5.5 (4.5-7.5) 03/21/23 05:26 Ur Specific [place] 1.020 (1.000-1.030) 03/21/23 05:26 Urine Protein Trace (Negative) H 03/21/23 05:26 Urine Glucose (UA) Negative (Negative) 03/21/23 05:26 Urine Ketones Negative (Negative) 03/21/23 05:26 Urine Blood 3+ (Negative) H 03/21/23 05:26 Urine Nitrite Negative (Negative) 03/21/23 05:26 Urine Bilirubin Negative (Negative) 03/21/23 05:26 Urine Urobilinogen Negative (Negative) 03/21/23 05:26 Ur Leukocyte Esterase Trace (Negative) H 03/21/23 05:26 Urine WBC (Auto) 1-5 /hpf (0-5) 03/21/23 05:26 Urine RBC (Auto) 0-4 /hpf (0-4) 03/21/23 05:26 U Hyaline Cast (Auto) 0 /lpf (0-5) 03/21/23 05:26 U Epithel Cells (Auto) 0-5 /lpf (0-5) 03/21/23 05:26 Urine Bacteria (Auto) Negative (Negative) 03/21/23 05:26 SARS-CoV-2, RNA, NAAT NEGATIVE (NEGATIVE) 03/21/23 04:11 Impressions KUB X-Ray 03/21/23 02:46 KUB CLINICAL HISTORY: Right ureteral stone. FINDINGS: 3 AP supine abdominal radiographs are correlated with abdominal CT dated 03/13/2023. There is a nonobstructed abdominal bowel gas pattern. Moderate fecal retention is seen throughout the colon. A 4 mm calcification projecting over the right vesicoureteral junction likely represents a distal ureteral stone when correlated with the recent CT scan. No additional calcifications are i dentified projecting over either kidney. There is a large phlebolith in the right hemipelvis. A surgical clip projects over the left inguinal canal. The bony structures appear intact. IMPRESSION: A 4 mm calcification projecting over the right vesicoureteral junction likely corresponds to the ureteral stone seen on the recent CT scan. This has progressed distally as compared to previous. Electronically signed by: Andrade Vegas M.D. 03/21/2023 7:16 AM Chest X-Ray 03/21/23 04:13 SINGLE VIEW CHEST CLINICAL HISTORY: Renal failure. FINDINGS: An AP, portable, upright chest radiograph is compared to study dated 11/29/2017. The heart is enlarged. The pulmonary vasculature is noncongested. The lungs and pleural spaces are clear. No pneumothorax is seen. The bony thorax is grossly intact. IMPRESSION: Cardiomegaly with no acute cardiopulmonary abnormality identified. ACT 112: Negative or not required by law. Electronically signed by: Andrade Vegas M.D. 03/21/2023 6:47 AM Pending Results Patient Have Any Pending Studies at Discharge: Yes Discharge Instructions Given to Patient (Per Discharging Provider) PLEASE REFER TO YOUR NEW MEDICATION LIST AND FOLLOW INSTRUCTIONS CAREFULLY. YOUR NEW MEDICATIONS INCLUDE: Oxycodone-as needed for pain Cephalexin-antibiotic for possible UTI Zofran-as needed for nausea Tylenol-1 g every 8 hours as needed for pain, do not exceed 3 g in 24 hours Please drink plenty of water. PLEASE CALL YOUR PRIMARY CARE PHYSICIAN OR RETURN TO THE ER IF WITH WORSENING OF SYMPTOMS, INCLUDING Increasing abdominal pain, nausea or vomiting, fevers or chills, changes with urination including blood in the urine, etc. FOLLOW UP WITH UROLOGIST THIS WEEK SCHEDULED. FOLLOW-UP WITH PRIMARY CARE PHYSICIAN IN 1 WEEK. Total Time Total Time Spent Total Time Spent (In Minutes): > 30 minutes
[2023-03-22] MEDS ORDERED: CEFEPIME 1,000 MG in SYRINGE 0 ML IV SCH (05:00)
[2023-03-22] MEDS ORDERED: TAMSULOSIN HCL 0.4 MG CAP PO SCH (09:00)
== END 2023-03-21 15:00 | disposition home or self-care (01) ==
LOC: ED 02:16 → EDINP 04:55 → INTOOBSV 04:55 → EDINP 05:32